=== PATIENT | male | born 1965 | race Caucasian/White ===

== ENCOUNTER 2016-07-17 08:16 | Emergency (ER) | payer MEDICARE ==
[2016-07-17] MEDS ORDERED: Pepcid 20 MG VIAL IV ONE ×2 (08:37→08:52)
[2016-07-17] MEDS ORDERED: Sodium Chloride 0.9% 1000 ML 1,000 ML IV SCH (08:45)
--- NOTE | 2016-07-17 08:49 | ERPHSYRPT ---
- History of Present Illness Time Seen by Provider: 07/17/16 08:27 Historian: patient Patient Subjective Stated Complaint: black stools and lower abd pain Triage Nursing Assessment: lower abd pain and frequent black stools for one week. no fever. no diet change. normal urination. states lost approx 30 lbs over past 3 months. 4-5 stools daily--most are black. nonradiating lower abd pain--intermittent in nature. Physician History: CC: lower abd pain Hx: 50 y/o patient of Dr Paredes. He has hx of CAD. He has lower abd pain , sharp, cramping. Some blood in stool and black stools. He had prior GB sonogram, no other abdominal problems. No fever or chills. Timing/Duration: day(s) (few) Severity of Pain-Max: moderate Severity of Pain-Current: moderate Allergies/Adverse Reactions: Penicillins Allergy (Severe, Verified 07/17/16 08:28) tongue swelling Home Medications: Albuterol Sulfate [Ventolin Hfa] 18 gm IH DAILY 07/17/16 [History] Albuterol/Ipratropium 3ml Neb* [DUONEB 0.5-3 MG/3 ml Neb] 3 ml NEB QID [History] Amlodipine Besylate [Norvasc] 2.5 mg PO DAILY 07/17/16 [History] Aspirin 325 mg PO DAILY 07/17/16 [History] Atorvastatin Calcium [Lipitor] 80 mg PO DAILY 07/17/16 [History] Carvedilol [Coreg] 25 mg PO DAILY 07/17/16 [History] Fluticasone/Vilanterol [Breo Ellipta 100-25 Mcg INH] 1 each IH DAILY 07/17/16 [ History] Hydrocodone Bit/Acetaminophen [Hydrocodon-Acetaminophn 10-325] 1 each PO [History] Lisinopril 20 mg [Zestril 20 MG] 20 mg PO DAILY 07/17/16 [History] Metformin HCl [Fortamet] 500 mg PO BID 07/17/16 [History] [place]-3 Fatty Acids/Fish Oil [[place]-3 1,000 mg Softgel] 1 each PO DAILY [History] Ticagrelor [Brilinta] 90 mg PO DAILY 07/17/16 [History] Zolpidem Tartrate [Ambien] 10 mg PO HS 07/17/16 [History] Hx Tetanus, Diphtheria Vaccination/Date Given: Yes Hx Influenza Vaccination/Date Given: Yes Hx Pneumococcal Vaccination/Date Given: No Immunizations Up to Date: Yes - Review of Systems Constitutional: Fatigue, Malaise, Weakness, No Fever, No Chills Eyes: No Symptoms Ears, Nose, & Throat: No Symptoms Respiratory: No Cough, No Dyspnea Cardiac: No Chest Pain Abdominal/Gastrointestinal: Abdominal Pain, Nausea, Vomiting, Diarrhea, Hematochezia, Melena Genitourinary Symptoms: No Dysuria Skin: No Rash Neurological: No Headache All Other Systems: Reviewed and Negative - Past Medical History Pertinent Past Medical History: Yes Neurological History: No Pertinent History ENT History: No Pertinent History Cardiac History: High Cholesterol, Hypertension, Myocardial Infarction (IA) Respiratory History: Asthma, Bronchitis, COPD, Emphysema, Pneumonia Endocrine Medical History: Diabetes Type II Musculoskeletal History: No Pertinent History GI Medical History: GERD History: No Pertinent History Psycho-Social History: Anxiety Male Reproductive Disorders: No Pertinent History Other Medical History: sleep apnea-cpap at night - Past Surgical History Past Surgical History: Yes Neuro Surgical History: No Pertinent History Cardiac: Cardiac Catheterization, Cardiac Stent Respiratory: No Pertinent History Gastrointestinal: No Pertinent History Genitourinary: No Pertinent History Musculoskeletal: No Pertinent History Male Surgical History: No Pertinent History - Social History Smoking Status: Never smoker Exposure to second hand smoke: No Drug Use: none Patient Lives Alone: No - Nursing Vital Signs Nursing Vital Signs: Initial Vital Signs Temperature 98.3 F Temperature Source Oral Pulse Rate 77 Respiratory Rate 18 Blood Pressure 118/74 Pain Intensity 0 - Physical Exam General Appearance: alert Eye Exam: PERRL/EOMI Ears, Nose, Throat Exam: normal ENT inspection, moist mucous membranes Neck Exam: normal inspection, non-tender, supple Respiratory Exam: normal breath sounds, lungs clear Cardiovascular Exam: regular rate/rhythm, No murmur Gastrointestinal/Abdomen Exam: soft, tenderness (lower abd worse on left), No mass, No guarding Male Genitalia Exam: normal genitalia, No testicular tenderness Rectal Exam: normal rectal tone, No blood, No tenderness Back Exam: normal inspection Extremity Exam: normal inspection, normal range of motion Neurologic Exam: alert, oriented x 3, cooperative, sensation nml, No motor deficits Skin Exam: warm, dry, No rash SpO2 Interpretation: normal SpO2: 97 Oxygen Delivery: Room Air - Course Nursing assessment & vital signs reviewed: Yes - CT Exams abd/pelvis CT Interpretation: Tele-radiologist Report (hepatic flexure colitis) Ordered Tests: Active Orders 24 hr Category Date Time Status [employer] STAT Care 07/17/16 08:37 Active IV Insertion STAT Care 07/17/16 08:37 Active NPO (ED) STAT Care 07/17/16 08:37 Active ABDOMEN AND PELVIS W CONTRAST [CT] Stat Exams 07/17/16 08:46 Completed CBC W DIFF Stat Lab 07/17/16 08:35 Completed CMP Stat Lab 07/17/16 08:35 Completed Lactic Acid Urgent Lab 07/17/16 09:05 Completed Occult Blood,Stool Other Stat Lab 07/17/16 08:38 Completed PROTIME WITH INR Stat Lab 07/17/16 08:35 Completed PTT Stat Lab 07/17/16 08:35 Completed UA Stat Lab 07/17/16 09:00 Completed Medication Summary Generic Name Dose Route Start Last Admin Trade Name Freq PRN Reason Stop Dose Admin Sodium Chloride 1,000 mls @ 100 mls/hr 07/17/16 08:45 07/17/16 08:53 Sodium Chloride 0.9% 1000 Ml IV 08/16/16 08:44 100 mls/hr .Q10H KENYON Administration Discontinued Medications Generic Name Dose Route Start Last Admin Trade Name Freq PRN Reason Stop Dose Admin Famotidine 20 mg 07/17/16 08:37 07/17/16 08:53 Pepcid 20 Mg Vial IV 07/17/16 08:38 20 mg STAT ONE Administration Famotidine Confirm 07/17/16 08:52 Pepcid 20 Mg Vial Administered 07/17/16 08:53 Dose 20 mg IV .STK-MED ONE Sodium Chloride Confirm 07/17/16 08:52 Sodium Chloride 0.9% 1000 Ml Administered 07/17/16 08:53 Dose 1,000 mls @ ud .ROUTE .STK-MED ONE Lab/Rad Data: Laboratory Result Diagrams 07/17/16 08:35 07/17/16 08:35 Laboratory Results 07/17/16 07/17/16 07/17/16 Range/Units 09:05 09:00 08:38 WBC (4.0-10.5) K/mm3 RBC (4.1-5.6) M/mm3 Hgb (12.5-18.0) gm/dl Hct (42-50) % MCV (78-100) fl MCH (26-32) pg MCHC (32-36) g/dl RDW (11.5-14.0) % Plt Count (150-450) K/mm3 MPV (6-9.5) fl Gran % (36.0-66.0) % Lymphocytes % (24.0-44.0) % Monocytes % (0.0-12.0) % Eosinophils % (0.00-5.0) % Basophils % (0.0-0.4) % Basophils # (0-0.4) INR (0.8-3.0) PTT (24.1-36.1) SECONDS Sodium (136-145) mEq/L Potassium (3.5-5.1) mEq/L Chloride (98-107) mEq/L Carbon Dioxide (21-32) mEq/L Anion Gap (5-15) MEQ/L BUN (9-20) mg/dL Creatinine (0.55-1.30) mg/dl Estimated GFR ML/MIN Glucose (70-110) MG/DL Lactic Acid 1.8 (0.4-2.0) Calcium (8.5-10.1) mg/dL Total Bilirubin (0.2-1.0) mg/dL AST (15-37) U/L ALT (12-78) U/L Alkaline Phosphatase (46-116) U/L Serum Total Protein (6.4-8.2) gm/dL Albumin (3.4-5.0) g/dL Ur Collection Type VOID Urine Color YELLOW (YELLOW) Urine Appearance CLEAR (CLEAR) Urine pH 5.0 (5-6) Ur Specific [place] >=1.030 (1.005-1.025) Urine Protein NEGATIVE (Negative) Urine Glucose (UA) >=1000 (NEGATIVE) mg/dL Urine Ketones NEGATIVE (NEGATIVE) Urine Nitrite NEGATIVE (NEGATIVE) Urine Bilirubin NEGATIVE (NEGATIVE) Urine Urobilinogen 0.2 (0-1) mg/dL Urine WBC (Auto) NEGATIVE (NEGATIVE) Urine RBC (Auto) NEGATIVE (0-5) [place]/ul Stool Occult Blood POSITIVE (Negative) Specimen Received 07/17/16 0900 ABO Group Rh Factor Antibody Screen (NEGATIVE) 07/17/16 07/17/16 07/17/16 Range/Units 08:35 08:35 08:35 WBC (4.0-10.5) K/mm3 RBC (4.1-5.6) M/mm3 Hgb (12.5-18.0) gm/dl Hct (42-50) % MCV (78-100) fl MCH (26-32) pg MCHC (32-36) g/dl RDW (11.5-14.0) % Plt Count (150-450) K/mm3 MPV (6-9.5) fl Gran % (36.0-66.0) % Lymphocytes % (24.0-44.0) % Monocytes % (0.0-12.0) % Eosinophils % (0.00-5.0) % Basophils % (0.0-0.4) % Basophils # (0-0.4) INR 1.06 (0.8-3.0) PTT 33.5 (24.1-36.1) SECONDS Sodium 140 (136-145) mEq/L Potassium 3.7 (3.5-5.1) mEq/L Chloride 106 (98-107) mEq/L Carbon Dioxide 23.7 (21-32) mEq/L Anion Gap 14.1 (5-15) MEQ/L BUN 25 H (9-20) mg/dL Creatinine 1.30 (0.55-1.30) mg/dl Estimated GFR > 60 ML/MIN Glucose 180 H (70-110) MG/DL Lactic Acid (0.4-2.0) Calcium 8.5 (8.5-10.1) mg/dL Total Bilirubin 0.2 (0.2-1.0) mg/dL AST 16 (15-37) U/L ALT 18 (12-78) U/L Alkaline Phosphatase 80 (46-116) U/L Serum Total Protein 6.9 (6.4-8.2) gm/dL Albumin 3.6 (3.4-5.0) g/dL Ur Collection Type Urine Color (YELLOW) Urine Appearance (CLEAR) Urine pH (5-6) Ur Specific [place] (1.005-1.025) Urine Protein (Negative) Urine Glucose (UA) (NEGATIVE) mg/dL Urine Ketones (NEGATIVE) Urine Nitrite (NEGATIVE) Urine Bilirubin (NEGATIVE) Urine Urobilinogen (0-1) mg/dL Urine WBC (Auto) (NEGATIVE) Urine RBC (Auto) (0-5) Bra[place]/ul Stool Occult Blood (Negative) Specimen Received ABO Group B Rh Factor POSITIVE Antibody Screen NEGATIVE (NEGATIVE) 07/17/16 Range/Units 08:35 WBC 10.3 (4.0-10.5) K/mm3 RBC 4.56 (4.1-5.6) M/mm3 Hgb 13.3 (12.5-18.0) gm/dl Hct 40.6 L (42-50) % MCV 89.0 (78-100) fl MCH 29.2 (26-32) pg MCHC 32.8 (32-36) g/dl RDW 12.8 (11.5-14.0) % Plt Count 294 (150-450) K/mm3 MPV 9.0 (6-9.5) fl Gran % 80.6 H (36.0-66.0) % Lymphocytes % 12.0 L (24.0-44.0) % Monocytes % 6.5 (0.0-12.0) % Eosinophils % 0.6 (0.00-5.0) % Basophils % 0.3 (0.0-0.4) % Basophils # 0.03 (0-0.4) INR (0.8-3.0) PTT (24.1-36.1) SECONDS Sodium (136-145) mEq/L Potassium (3.5-5.1) mEq/L Chloride (98-107) mEq/L Carbon Dioxide (21-32) mEq/L Anion Gap (5-15) MEQ/L BUN (9-20) mg/dL Creatinine (0.55-1.30) mg/dl Estimated GFR ML/MIN Glucose (70-110) MG/DL Lactic Acid (0.4-2.0) Calcium (8.5-10.1) mg/dL Total Bilirubin (0.2-1.0) mg/dL AST (15-37) U/L ALT (12-78) U/L Alkaline Phosphatase (46-116) U/L Serum Total Protein (6.4-8.2) gm/dL Albumin (3.4-5.0) g/dL Ur Collection Type Urine Color (YELLOW) Urine Appearance (CLEAR) Urine pH (5-6) Ur Specific [place] (1.005-1.025) Urine Protein (Negative) Urine Glucose (UA) (NEGATIVE) mg/dL Urine Ketones (NEGATIVE) Urine Nitrite (NEGATIVE) Urine Bilirubin (NEGATIVE) Urine Urobilinogen (0-1) mg/dL Urine WBC (Auto) (NEGATIVE) Urine RBC (Auto) (0-5) Bra[place]/ul Stool Occult Blood (Negative) Specimen Received ABO Group Rh Factor Antibody Screen (NEGATIVE) - Progress Progress Note: 07/17/16 10:32 Pt stable. Explained abnl test results. He will be treated with PPI and abtx. He prefers to go home. Called Dr Faith who will see in office tomorrow at 11: 15. Will release with instr. Pt declined pain meds here and abd is soft with normal vital signs. Counseled pt/family regarding: lab results, diagnosis, need for follow-up, rad results - Departure Time of Disposition: 10:34 Departure Disposition: Home Clinical Impression: Colitis, Melena Condition: Stable Critical Care Time: No Referrals: LISET DAVIS [Primary Care Provider] - Instructions: Abdominal Pain-Adult Additional Instructions: See Dr Faith tomorrow at 11:15AM for follow up check. [place] diet. Hold brilinta today and in AM. Rx protonix- next dose in AM Rx flagyl- no alcohol Rx levaquin- next dose in AM Return for problems or concerns. Hold metformin for 48 hours and watch sugars. Prescriptions: Levofloxacin [Levaquin] 1 tab PO DAILY #7 tablet Metronidazole 500 mg [Flagyl 500 MG] 500 mg PO TID #30 tablet PANTOPRAZOLE 40 mg Tablet [Protonix 40MG Tablet] 40 mg PO QAM #30 tab
[2016-07-17] MEDS ORDERED: Sodium Chloride 0.9% 1000 ML 1,000 ML ONE (08:52)
[2016-07-17 08:59] LABS: BASOPHIL % 0.3 % (0.0-0.4); Eosinophil % 0.6 % (0.00-5.0); Granulocytes % 80.6 % (36.0-66.0); Mean Corpuscular Hemoglobin 29.2 pg (26-32); Monocytes % 6.5 % (0.0-12.0); Platelet Count 294 K/mm3 (150-450); Red Blood Count 4.56 M/mm3 (4.1-5.6); Red Cell Distribution Width 12.8 % (11.5-14.0); White Blood Count 10.3 K/mm3 (4.0-10.5)
[2016-07-17 09:15] LABS: Collection Type VOID
[2016-07-17 09:17] LABS: COMPLETE URINE MICROSCOPIC? NO
[2016-07-17 09:19] LABS: ALBUMIN 3.6 g/dL (3.4-5.0); ALKALINE PHOSPHATASE 80 U/L (46-116); ANION GAP 14.1 MEQ/L (5-15); BILIRUBIN,TOTAL 0.2 mg/dL (0.2-1.0); BLOOD UREA NITROGEN 25 mg/dL (9-20); CHLORIDE 106 mEq/L (98-107); Carbon Dioxide 23.7 mEq/L (21-32); Glucose 180 MG/DL (70-110); Potassium 3.7 mEq/L (3.5-5.1); SGOT/AST 16 U/L (15-37); SGPT/ALT 18 U/L (12-78); SODIUM 140 mEq/L (136-145); Total Protein 6.9 gm/dL (6.4-8.2)
[2016-07-17 09:22] LABS: INR 1.06 (0.8-3.0); PROTIME 11.8 SECONDS (8.83-12.87)
[2016-07-17 09:25] LABS: PTT 33.5 SECONDS (24.1-36.1)
--- NOTE | 2016-07-17 09:57 | XRAY ---
Indication: Lower abdominal pain, diarrhea, and black stools. Multiple contiguous axial images obtained through the abdomen and pelvis using 80 cc Isovue 370 contrast only as ordered. Comparison: None Lung bases hyperinflated with minimal inferior lingular fibrosis/scarring and left base calcified granuloma. No infiltrate, consolidation, or effusion. Heart is not enlarged. Tiny distal paraesophageal calcified nodes. Noncontrasted stomach and bowel loops appear nonobstructed. Mild circumferential wall thickening involving the hepatic flexure of the colon, possible colitis. Normal appendix. No free fluid/air. Remaining liver, gallbladder, pancreas, spleen, adrenal glands, kidneys, ureters, and bladder appear unremarkable. Mild aortoiliac calcifications. No AAA or pathologic retroperitoneal lymphadenopathy. Osseous structures intact with mild lumbosacral degenerative disc disease. Impression: Hepatic flexure of the colon demonstrates mild circumferential wall thickening favoring colitis. No perforation or complications. CT DI 17.97
[2016-07-17] MEDS ORDERED: PROTONIX 40 MG IV IV ONE ×2 (10:30→10:34)
[2016-07-17] MEDS ORDERED: Levaquin 500 MG Tablet PO ONE (10:31)
[2016-07-17] MEDS ORDERED: LEVAQUIN 250 MG PO ONE (10:31)
[2016-07-17] MEDS ORDERED: Flagyl 500 MG PO ONE (10:31)
[2016-07-17] MEDS ORDERED: Flagyl 500 MG ONE (10:34)
[2016-07-17] MEDS ORDERED: Levaquin 500 MG Tablet ONE (10:34)
[2016-07-17] MEDS ORDERED: LEVAQUIN 250 MG ONE (10:35)
[2016-07-17 10:39] VITALS: O2SAT 97
[2016-07-17 10:43] VITALS: BP 116/73; PULSE 67
== END 2016-07-17 10:45 | disposition home or self-care (01) ==
LOC: ED 08:16
DX: K52.9 Noninfective gastroenteritis and colitis, unspecified (principal); K92.1 Melena; R10.9 Unspecified abdominal pain; R11.2 Nausea with vomiting, unspecified; R19.7 Diarrhea, unspecified; E78.00 Pure hypercholesterolemia, unspecified; I10 Essential (primary) hypertension; E11.9 Type 2 diabetes mellitus without complications; Z79.899 Other long term (current) drug therapy; Z79.82 Long term (current) use of aspirin
CPT/HCPCS: 36000; 36415; 74177; 80053; 81002; 82272; 83605; 85025; 85610; 85730; 86850; 86900; 86901; 93041; 96360; 96361; 96374; 96375; 99284

== ENCOUNTER 2016-07-20 12:14 | Inpatient (IN) | payer MEDICARE ==
[2016-07-20 13:18] LABS: BASOPHIL % 0.3 % (0.0-0.4); Eosinophil % 1.3 % (0.00-5.0); Granulocytes % 51.4 % (36.0-66.0); Lymphocytes % 33.6 % (24.0-44.0); Mean Cell Volume 88.7 fl (78-100); Mean Corpuscular Hemoglobin 29.3 pg (26-32); Mean Platelet Volume 9.2 fl (6-9.5); Monocytes % 13.4 % (0.0-12.0); Platelet Count 302 K/mm3 (150-450); Red Blood Count 4.61 M/mm3 (4.1-5.6); Red Cell Distribution Width 12.8 % (11.5-14.0)
[2016-07-20 13:29] LABS: INR 1.17 (0.8-3.0)
[2016-07-20] MEDS ORDERED: Sodium Chloride 0.9% 500 ML 500 ML IV SCH (13:30)
[2016-07-20] MEDS ORDERED: Zofran 4 MG/2 ML VIAL IV PRN (13:32)
[2016-07-20] MEDS ORDERED: TYLENOL 325 MG PO PRN (13:33)
[2016-07-20 13:43] LABS: ALBUMIN 3.7 g/dL (3.4-5.0); ALKALINE PHOSPHATASE 84 U/L (46-116); ANION GAP 13.7 MEQ/L (5-15); BILIRUBIN,TOTAL 0.3 mg/dL (0.2-1.0); BLOOD UREA NITROGEN 25 mg/dL (9-20); CHLORIDE 107 mEq/L (98-107); Carbon Dioxide 25.3 mEq/L (21-32); Glucose 96 MG/DL (70-110); Potassium 4.1 mEq/L (3.5-5.1); SGOT/AST 16 U/L (15-37); SGPT/ALT 32 U/L (12-78); SODIUM 142 mEq/L (136-145); Total Protein 7.2 gm/dL (6.4-8.2)
--- NOTE | 2016-07-20 14:31 | XRAY ---
Indication: Tar like stools. Abdominal pain. Comparison: None 2 views of the abdomen nonacute and nonobstructed with mild scattered colonic fecal debris. Solid organs and osseous structures unremarkable. Single PA chest demonstrates normal heart, lungs, and bony thorax. Impression: Nonacute nonobstructed abdomen with mild fecal stasis. Normal 1 view chest.
[2016-07-20] MEDS: PROTONIX 40 MG IV IV SCH (14:42)
[2016-07-20] MEDS: Dextrose 5% -0.45 NaCl 1000 ML 1,000 ML IV SCH (14:42)
[2016-07-20] MEDS: Levaquin 500MG/100ML D5W 100 ML IV SCH (14:44)
[2016-07-20] MEDS ORDERED: DUONEB 0.5-3 MG/3 ml Neb IH PRN (14:56)
[2016-07-20] MEDS ORDERED: MEDICATION INTERVENTION MC PRN (15:25)
--- NOTE | 2016-07-20 15:50 | CONS ---
CONSULT DATE: 07/20/16 HISTORY OF PRESENT ILLNESS: The patient is a 50 y/o gentleman with multiple medical problems. Had some vague mid to lower abdominal aches and in the upper, some bloating. Has been going on for a few days. He later developed some dark, bloody stools. He had a CT scan on 07/17/16 that showed some inflammation in the hepatic flexure that the radiologist was felt was consistent with some possible colitis, no free air collections. PAST MEDICAL HISTORY: Had chronic obstructive pulmonary disease. He has had heart disease. Has had coronary stents in [place] in the past. PAST SURGICAL HISTORY: Denied any prior abdominal surgery. Has had some diabetes. HOME MEDICATIONS: Aspirin, atorvastatin, Breo Ellipta, carvedilol, zolpidem, Plavix, omeprazole, Nitrostat, metronidazole, metformin, lisinopril, Levaquin, ipratropium, albuterol, hydrocodone, famotidine, fluconazole. ALLERGIES: PENICILLIN. FAMILY HISTORY: Heart disease. SOCIAL HISTORY: No smoking. REVIEW OF SYSTEMS: 10 systems reviewed per admission assessment. Again, some dark bloody stools. No bright bloody stools. No vomiting currently. He did have some bloating and some vague abdominal aches. Pain is a little better than it was a few days ago, but still has some persistent symptoms. No chest pain or palpitations otherwise. IMPRESSION: 1. SOME ABDOMINAL PAIN. SOME DARK BLOODY STOOLS. Could be related to some colitis given his blood thinner use vs gastritis, peptic ulcer disease, or other etiology. Given the CT findings, recommend IV antibiotics overnight. If he is improved some more tomorrow, likely could plan on proceeding possibly with upper and lower endoscopy on Saturday. General risks of bleeding; infection; risk of bowel injury or perforation possibly requiring open procedure; small risk of missed or nondiagnosis or incomplete exam possibly requiring barium enema or other studies or procedures; general risk of cardiopulmonary event given his comorbidities, but not limited to. Will wait and make sure he is improved tomorrow before considering bowel prep and endoscopy. If he failed to improve or he worsens, will consider repeating the CT scan tomorrow if needed, but if he continues to improve, likely would set up endoscopy for possibly Saturday. He understands and agrees to the plan. In the meantime, continue bowel rest, IV antibiotics, and medical management for now. Thank you for the consult.
[2016-07-20] MEDS: FLAGYL 500 MG IVPB 100 ML IV SCH ×2 (16:30→23:58)
[2016-07-20] MEDS: MORPHINE SULFATE 2 MG INJ IV PRN ×2 (18:33→22:10)
[2016-07-20] MEDS ORDERED: DUONEB 0.5-3 MG/3 ml Neb IH SCH (19:00)
[2016-07-20] MEDS: Norco 10/325 MG Tablet PO PRN (21:49)
[2016-07-20] MEDS: Ambien 10 MG PO SCH (21:54)
[2016-07-21] MEDS: Dextrose 5% -0.45 NaCl 1000 ML 1,000 ML IV SCH ×2 (03:38→19:51)
[2016-07-21] MEDS: FLAGYL 500 MG IVPB 100 ML IV SCH ×4 (05:31→23:06)
[2016-07-21 06:26] LABS: Mean Cell Volume 89.8 fl (78-100); Mean Platelet Volume 9.4 fl (6-9.5); Platelet Count 231 K/mm3 (150-450); Red Blood Count 4.01 M/mm3 (4.1-5.6); Red Cell Distribution Width 12.5 % (11.5-14.0)
[2016-07-21 06:27] LABS: Mean Corpuscular Hemoglobin 29.1 pg (26-32)
[2016-07-21] MEDS: NORVASC 5 MG PO SCH (08:28)
[2016-07-21] MEDS: PROTONIX 40 MG IV IV SCH (08:29)
[2016-07-21] MEDS: PLAVIX 75 MG Tablet PO SCH (08:29)
[2016-07-21] MEDS: ZOCOR 20MG PO SCH (08:29)
[2016-07-21] MEDS: COREG 12.5 MG PO SCH (08:30)
[2016-07-21] MEDS: MORPHINE SULFATE 2 MG INJ IV PRN (08:30)
[2016-07-21] MEDS: FISH OIL 1,000 MG CAPSULE PO SCH (08:30)
[2016-07-21] MEDS: Levaquin 500MG/100ML D5W 100 ML IV SCH (08:33)
[2016-07-21] MEDS: ECOTRIN 81 MG PO SCH (08:39)
[2016-07-21] MEDS ORDERED: OMEGA PO SCH (10:00)
[2016-07-21] MEDS ORDERED: Ventolin Hfa MDI IH SCH (10:00)
[2016-07-21] MEDS ORDERED: FATTY ACIDS PO SCH (10:00)
[2016-07-21] MEDS ORDERED: NON-FORMULARY ITEM (Atorvastatin Calcium [Lipitor] 80 MG) PO SCH (10:00)
[2016-07-21] MEDS ORDERED: PROVENTIL COMMON CANISTER IH SCH (10:00)
[2016-07-21] MEDS ORDERED: NON-FORMULARY ITEM (Amlodipine Besylate [Norvasc] 2.5 MG) PO SCH (10:00)
[2016-07-21] MEDS ORDERED: NON-FORMULARY ITEM (Fluticasone/Vilanterol [Breo Ellipta 100-25 Mcg Inh] 1 EACH) IH SCH (10:00)
[2016-07-21] MEDS ORDERED: FISH OIL PO SCH (10:00)
--- NOTE | 2016-07-21 10:05 | PCM.NOTE ---
Date and Time: 07/21/16 1004 Subjective Assessment: patient reports his pain has improved, still uncomfortable in the lower abdomen. had a black stool this morning, no fever. Objective Exam General Appearance: no apparent distress, alert Respiratory Exam: normal breath sounds, lungs clear, No respiratory distress Cardiovascular Exam: regular rate/rhythm, normal heart sounds Gastrointestinal/Abdomen Exam: soft, tenderness (mild in lower abdomen) Extremity Exam: normal inspection, normal range of motion OBJECTIVE DATA Vital Signs: Vital Signs - 24 hr Temp Pulse Resp BP BP Pulse Ox 07/21/16 07:52 98.1 F 77 20 137/68 95 07/21/16 04:00 98.2 F 75 16 141/72 98 07/21/16 00:00 97.7 F 73 18 132/73 95 07/20/16 20:25 74 20 97 07/20/16 20:00 98.5 F 75 20 141/81 95 07/20/16 16:00 98.2 F 73 20 132/77 96 07/20/16 15:02 69 18 97 07/20/16 12:35 98 F 73 18 112/70 97 07/20/16 12:30 98.0 F 73 18 112/70 97 Oxygen-Last 24 hours O2 Percentage 2 Liters = 28% O2 Percentage 2 Liters = 28% Pain Assessment - Last Documented Pain Intensity 4 Pain Scale Used 0-10 Pain Scale Intake and Output: Intake & Output 07/18/16 07/19/16 07/20/16 07/21/16 11:59 11:59 11:59 11:59 Intake Total 3048 Balance 3048 Weight 83.552 kg Lab Results: Accuchecks Date 07/21/16 Date 07/20/16 Time 07:30 Time 22:00 Accucheck Value: 92 Accucheck Value: 122 Lab Results-Last 24 Hours 07/20/16 07/20/16 07/20/16 Range/Units 12:55 12:55 13:00 WBC 6.0 (4.0-10.5) K/mm3 RBC 4.61 (4.1-5.6) M/mm3 Hgb 13.5 (12.5-18.0) gm/dl Hct 40.9 L (42-50) % MCV 88.7 (78-100) fl MCH 29.3 (26-32) pg MCHC 33.0 (32-36) g/dl RDW 12.8 (11.5-14.0) % Plt Count 302 (150-450) K/mm3 MPV 9.2 (6-9.5) fl Gran % 51.4 (36.0-66.0) % Lymphocytes % 33.6 (24.0-44.0) % Monocytes % 13.4 H (0.0-12.0) % Eosinophils % 1.3 (0.00-5.0) % Basophils % 0.3 (0.0-0.4) % Basophils # 0.02 (0-0.4) INR 1.17 (0.8-3.0) Sodium (136-145) mEq/L Potassium (3.5-5.1) mEq/L Chloride (98-107) mEq/L Carbon Dioxide (21-32) mEq/L Anion Gap (5-15) MEQ/L BUN (9-20) mg/dL Creatinine (0.55-1.30) mg/dl Estimated GFR ML/MIN Glucose (70-110) MG/DL Hemoglobin A1c (4.5-6.2) Lactic Acid 0.9 (0.4-2.0) Calcium (8.5-10.1) mg/dL Total Bilirubin (0.2-1.0) mg/dL AST (15-37) U/L ALT (12-78) U/L Alkaline Phosphatase (46-116) U/L Serum Total Protein (6.4-8.2) gm/dL Albumin (3.4-5.0) g/dL 07/20/16 07/21/16 07/21/16 Range/Units 13:05 05:40 05:40 WBC 5.0 (4.0-10.5) K/mm3 RBC 4.01 L (4.1-5.6) M/mm3 Hgb 11.7 L (12.5-18.0) gm/dl Hct 36.0 L (42-50) % MCV 89.8 (78-100) fl MCH 29.1 (26-32) pg MCHC 32.5 (32-36) g/dl RDW 12.5 (11.5-14.0) % Plt Count 231 (150-450) K/mm3 MPV 9.4 (6-9.5) fl Gran % (36.0-66.0) % Lymphocytes % (24.0-44.0) % Monocytes % (0.0-12.0) % Eosinophils % (0.00-5.0) % Basophils % (0.0-0.4) % Basophils # (0-0.4) INR (0.8-3.0) Sodium 142 (136-145) mEq/L Potassium 4.1 (3.5-5.1) mEq/L Chloride 107 (98-107) mEq/L Carbon Dioxide 25.3 (21-32) mEq/L Anion Gap 13.7 (5-15) MEQ/L BUN 25 H (9-20) mg/dL Creatinine 1.12 (0.55-1.30) mg/dl Estimated GFR > 60 ML/MIN Glucose 96 (70-110) MG/DL Hemoglobin A1c 6.4 H (4.5-6.2) Lactic Acid (0.4-2.0) Calcium 8.9 (8.5-10.1) mg/dL Total Bilirubin 0.3 (0.2-1.0) mg/dL AST 16 (15-37) U/L ALT 32 (12-78) U/L Alkaline Phosphatase 84 (46-116) U/L Serum Total Protein 7.2 (6.4-8.2) gm/dL Albumin 3.7 (3.4-5.0) g/dL Radiology Exams: Radiology Procedures Category Date Time Status OBSTR/ACUTE ABDOMEN SERIES Routine Exams 07/20/16 13:00 Completed Multi-Disciplinary Progress Notes: Multi-Disciplinary Progress Notes 07/20/16 23:21 Respiratory Note by Devendra Boucher PT STATED HE DID NOT WANT TO TRY OUT OUR CPAP MASK AND UNIT TONIGHT SO I DID GO AHEAD AND PLACE HIM ON A 2LPM NC OF O2 FOR THE NIGHT HE DOES USE 2LPM W/ CPAP. Initialized on 07/20/16 23:21 - END OF NOTE 07/20/16 20:28 Respiratory Note by Devendra Boucher NO TX NEEDED AT THIS TIME. PT DOESN'T THINK HE WANTS TO WEAR OUR CPAP UNIT/ MASK. I LET HIM KNOW I'D LEAVE IT AT BEDSIDE THIS AVILA IN CASE HE CHANGED HIS MIND AND THAT HE WAS WELCOME TO HAVE HIS FAMILY BRING HIS PERSONAL UNIT IN TO USE WHILE HE IS HERE. Initialized on 07/20/16 20:28 - END OF NOTE Assessment/Plan (1) Colitis Current Visit: No Status: Acute Assessment & Plan: continue levaquin and flagyl, will be seen by surgery to contemplate timing of EGD/colonoscopy (2) Melena Current Visit: No Status: Acute Code(s): K92.1 - MELENA
[2016-07-21] MEDS ORDERED: Reglan 10 MG/2 ML IV PRN (15:12)
[2016-07-21] MEDS ORDERED: Golytely Solution 4000 ML PO ONE (16:00)
[2016-07-21] MEDS: Norco 10/325 MG Tablet PO PRN (17:29)
--- NOTE | 2016-07-21 20:48 | XRAY ---
Indication: Abdominal and pelvic pain. Multiple contiguous axial images obtained through the abdomen and pelvis using 80 cc of Isovue-370 contrast only. Comparison: July 17, 2016 Minimal atelectasis/scarring in the inferior lingula and right lung base. Heart is not enlarged. Stable distal paraesophageal calcified nodes. Noncontrasted stomach and bowel loops again appear nonobstructed. Previous hepatic flexure colonic bowel wall thickening has resolved. There is now mild scattered colonic fecal debris and minimal sigmoid diverticulosis. Normal appendix. No free fluid/air. Remaining liver, gallbladder, pancreas, spleen, adrenal glands, kidneys, ureters, and bladder appear unremarkable. Stable aortoiliac calcifications again without AAA. Impression: 1. Previous hepatic flexure colonic wall thickening has resolved. There is now mild fecal stasis and sigmoid diverticulosis. 2. No acute intra-abdominal/pelvic abnormalities. CTDI 16.64
[2016-07-21] MEDS: Ambien 10 MG PO SCH (21:50)
[2016-07-22] MEDS: Dextrose 5% -0.45 NaCl 1000 ML 1,000 ML IV SCH (05:48)
[2016-07-22] MEDS: FLAGYL 500 MG IVPB 100 ML IV SCH ×2 (05:48→11:08)
[2016-07-22 05:52] LABS: BASOPHIL % 0.2 % (0.0-0.4); Eosinophil % 1.2 % (0.00-5.0); Granulocytes % 60.4 % (36.0-66.0); Lymphocytes % 27.3 % (24.0-44.0); Mean Cell Volume 88.9 fl (78-100); Mean Corpuscular Hemoglobin 29.1 pg (26-32); Monocytes % 10.9 % (0.0-12.0); Platelet Count 246 K/mm3 (150-450); Red Blood Count 4.22 M/mm3 (4.1-5.6); Red Cell Distribution Width 12.5 % (11.5-14.0); White Blood Count 6.1 K/mm3 (4.0-10.5)
[2016-07-22 06:08] LABS: ALBUMIN 3.2 g/dL (3.4-5.0); ALKALINE PHOSPHATASE 57 U/L (46-116); BILIRUBIN,TOTAL 0.3 mg/dL (0.2-1.0); BLOOD UREA NITROGEN 6 mg/dL (9-20); CHLORIDE 108 mEq/L (98-107); Carbon Dioxide 29.5 mEq/L (21-32); Glucose 113 MG/DL (70-110); MAGNESIUM 1.9 mg/dL (1.8-2.4); Potassium 3.8 mEq/L (3.5-5.1); SGOT/AST 26 U/L (15-37); SGPT/ALT 30 U/L (12-78); SODIUM 145 mEq/L (136-145)
--- NOTE | 2016-07-22 07:21 | PCM.NOTE ---
Date and Time: 07/22/16718 Subjective Assessment: patient stable, prepped for scope today. feels hungry, no abd pain. hemocult was negative yesterday, hgc >12 today Objective Exam General Appearance: no apparent distress, alert Skin Exam: normal color, warm, dry Respiratory Exam: normal breath sounds, lungs clear, No respiratory distress Cardiovascular Exam: regular rate/rhythm, normal heart sounds Gastrointestinal/Abdomen Exam: soft, No tenderness, No mass Extremity Exam: normal inspection, normal range of motion OBJECTIVE DATA Vital Signs: Vital Signs - 24 hr Temp Pulse Resp BP Pulse Ox 07/22/16 04:00 98.5 F 74 20 142/87 98 07/21/16 23:20 98.0 F 83 20 140/90 97 07/21/16 19:53 98.2 F 74 18 164/88 96 07/21/16 19:41 95 07/21/16 19:40 67 16 95 07/21/16 16:24 97.8 F 88 20 130/63 97 07/21/16 15:00 71 20 96 07/21/16 12:00 98.6 F 69 20 148/70 96 07/21/16 07:52 98.1 F 77 20 137/68 95 Oxygen-Last 24 hours O2 Percentage 2 Liters = 28% Pain Assessment - Last Documented Pain Intensity 0 Pain Scale Used 0-10 Pain Scale Intake and Output: Intake & Output 07/19/16 07/20/16 07/21/16 07/22/16 11:59 11:59 11:59 11:59 Intake Total 3048 6473 Balance 3048 6473 Weight 83.552 kg Lab Results: Accuchecks Date 07/21/16 Time 07:30 Accucheck Value: 92 Lab Results-Last 24 Hours 07/21/16 07/21/16 07/22/16 Range/Units 05:40 08:00 04:30 WBC 6.1 (4.0-10.5) K/mm3 RBC 4.22 (4.1-5.6) M/mm3 Hgb 12.3 L (12.5-18.0) gm/dl Hct 37.5 L (42-50) % MCV 88.9 (78-100) fl MCH 29.1 (26-32) pg MCHC 32.8 (32-36) g/dl RDW 12.5 (11.5-14.0) % Plt Count 246 (150-450) K/mm3 MPV 9.0 (6-9.5) fl Gran % 60.4 (36.0-66.0) % Lymphocytes % 27.3 (24.0-44.0) % Monocytes % 10.9 (0.0-12.0) % Eosinophils % 1.2 (0.00-5.0) % Basophils % 0.2 (0.0-0.4) % Basophils # 0.01 (0-0.4) Sodium (136-145) mEq/L Potassium (3.5-5.1) mEq/L Chloride (98-107) mEq/L Carbon Dioxide (21-32) mEq/L Anion Gap (5-15) MEQ/L BUN (9-20) mg/dL Creatinine (0.55-1.30) mg/dl Estimated GFR ML/MIN Glucose (70-110) MG/DL Hemoglobin A1c 6.4 H (4.5-6.2) Calcium (8.5-10.1) mg/dL Magnesium (1.8-2.4) mg/dL Total Bilirubin (0.2-1.0) mg/dL AST (15-37) U/L ALT (12-78) U/L Alkaline Phosphatase (46-116) U/L Serum Total Protein (6.4-8.2) gm/dL Albumin (3.4-5.0) g/dL Stool Occult Blood NEGATIVE (Negative) 07/22/16 Range/Units 04:30 WBC (4.0-10.5) K/mm3 RBC (4.1-5.6) M/mm3 Hgb (12.5-18.0) gm/dl Hct (42-50) % MCV (78-100) fl MCH (26-32) pg MCHC (32-36) g/dl RDW (11.5-14.0) % Plt Count (150-450) K/mm3 MPV (6-9.5) fl Gran % (36.0-66.0) % Lymphocytes % (24.0-44.0) % Monocytes % (0.0-12.0) % Eosinophils % (0.00-5.0) % Basophils % (0.0-0.4) % Basophils # (0-0.4) Sodium 145 (136-145) mEq/L Potassium 3.8 (3.5-5.1) mEq/L Chloride 108 H (98-107) mEq/L Carbon Dioxide 29.5 (21-32) mEq/L Anion Gap 11.0 (5-15) MEQ/L BUN 6 L (9-20) mg/dL Creatinine 1.07 (0.55-1.30) mg/dl Estimated GFR > 60 ML/MIN Glucose 113 H (70-110) MG/DL Hemoglobin A1c (4.5-6.2) Calcium 8.4 L (8.5-10.1) mg/dL Magnesium 1.9 (1.8-2.4) mg/dL Total Bilirubin 0.3 (0.2-1.0) mg/dL AST 26 (15-37) U/L ALT 30 (12-78) U/L Alkaline Phosphatase 57 (46-116) U/L Serum Total Protein 6.0 L (6.4-8.2) gm/dL Albumin 3.2 L (3.4-5.0) g/dL Stool Occult Blood (Negative) Radiology Exams: Radiology Procedures Category Date Time Status ABDOMEN AND PELVIS W CONTRAST [CT] Urgent Exams 07/21/16 11:08 Completed OBSTR/ACUTE ABDOMEN SERIES Routine Exams 07/20/16 13:00 Completed Multi-Disciplinary Progress Notes: Multi-Disciplinary Progress Notes 07/21/16 15:09 Respiratory Note by Nely Figueroa pt takes breo prn at home . does not want to use advair. and does not to bring in home supply Initialized on 07/21/16 15:09 - END OF NOTE 07/21/16 11:39 Case Management Note by [place] DISCHARGE PLAN REVIEWED. NORMALLY INDEPENDENT WITH ALL ADL'S, LIVES WITH GIRLFRIEND. PT HAS AN OXYGEN CONCENTRATOR THAT HE PURCHASED ONLINE AND STATES HE USES CPAP AT [facility] WITH 2L. DENIES ANY OTHER SERVICES OR DME'S. WILL CONTINUE TO MONITOR FOR ALL D/C PLANS Initialized on 07/21/16 11:39 - END OF NOTE Assessment/Plan (1) Colitis Current Visit: No Status: Acute Assessment & Plan: improved clinically, likely home later today or tomorrow on po antibiotics (2) Melena Current Visit: No Status: Acute Code(s): K92.1 - MELENA
[2016-07-22] MEDS ORDERED: Ketamine HCl 50 MG/ML IV ONE (08:00)
[2016-07-22] MEDS ORDERED: DIPRIVAN 200 MG/20 ML IV ONE (08:00)
[2016-07-22] MEDS ORDERED: Lactated Ringers 1,000 ML IV SCH (08:30)
[2016-07-22] MEDS ORDERED: NO ANTICOAGULANTS OR BLOOD THINNERS/ASPIRIN MC SCH (10:00)
[2016-07-22] MEDS: NORVASC 5 MG PO SCH (11:06)
[2016-07-22] MEDS: PROTONIX 40 MG IV IV SCH (11:06)
[2016-07-22] MEDS: ZOCOR 20MG PO SCH (11:06)
[2016-07-22] MEDS: FISH OIL 1,000 MG CAPSULE PO SCH (11:07)
[2016-07-22] MEDS: COREG 12.5 MG PO SCH (11:07)
[2016-07-22] MEDS: ECOTRIN 81 MG PO SCH (11:07)
[2016-07-22] MEDS: PLAVIX 75 MG Tablet PO SCH (11:08)
[2016-07-22] MEDS: Levaquin 500MG/100ML D5W 100 ML IV SCH (11:08)
[2016-07-22] MEDS ORDERED: Lactated Ringers 1,000 ML IV ONE (11:19)
[2016-07-22 12:50] VITALS: BP 120/61; PULSE 80; O2SAT 95
--- NOTE | 2016-07-23 08:26 | OP ---
SURGERY DATE: 07/22/16 SURGERY TIME: 0850 PREOPERATIVE DIAGNOSIS: 1. HISTORY OF ABDOMINAL PAIN. 2. HISTORY OF RECENT CT SCAN SHOWING THICKENED RIGHT COLON AND PROXIMAL TRANSVERSE COLON. 3. HISTORY OF QUESTION OF MELENA. POSTOPERATIVE DIAGNOSIS: 1. MILD GASTRITIS. 2. SHORT SEGMENT DISTAL GASTROESOPHAGITIS VS EARLY MCNALLY'S. 3. POOR BOWEL PREP LIMITING THE EXAM. 4. SMALL POLYPS ASCENDING COLON AND TRANSVERSE COLON. 5. DIVERTICULOSIS. 6. SMALL INTERNAL/EXTERNAL HEMORRHOIDS. PROCEDURE: 1. EGD with cold biopsy to small bowel to evaluate for celiac sprue. 2. Cold biopsy antrum to evaluate for Helicobacter pylori. 3. Cold biopsy distal esophagus to evaluate for a short segment of early Mcnally's vs gastroesophagitis. 4. Colonoscopy to terminal ileum with hot snare polypectomy of 2-3 small transverse colon polyps. 5. Hot snare polypectomy small ascending colon polyp. 6. Hot biopsy of smaller transverse colon polyp. 7. Random cold biopsies of right colon and proximal ascending and proximal transverse colon to evaluate for microscopic colitis. SURGEON: Dr. Carlos Morris. ANESTHESIA: MAC. ESTIMATED BLOOD LOSS: Minimal. INDICATIONS: As noted above. Risks and benefits explained in detail, but not limited to. Consent was obtained. DESCRIPTION OF PROCEDURE AND FINDINGS: The patient was taken to the OR. MAC anesthesia was induced. After official time-out, no disagreement in planned procedure. Bite block positioned. Video gastroscope easily passed down the esophagus through the patent pylorus to the junction of the 2nd and 3rd portion of the duodenum. The duodenum and duodenal bulb were grossly unremarkable, but given his symptoms, felt he warranted testing for celiac sprue. Cold biopsy taken of small bowel for celiac sprue. The scope pulled back into the stomach. He had some mild gastritis. Cold biopsy taken to evaluate for Helicobacter pylori. On retroflex, there were no signs of any large hiatal hernia. The scope was straightened. Other than the gastritis, no signs of ulcers. No signs of any other masses or any other mucosal lesions other than the gastritis. The scope pulled back. Gastroesophageal junction at 40 cm. A short segment of possible early Mcnally's vs gastroesophagitis. Cold biopsy was taken. Good hemostasis noted. The remainder of the esophagus was grossly unremarkable. Attention was then turned to the colonoscopy. Digital rectal exam did not reveal any rectal masses. He did have some small internal/external hemorrhoids. Video colonoscope inserted and passed up through the very tortuous sigmoid, descending, and transverse colon. With external pressure, the scope was able to be passed down the ascending colon. The ileocecal valve and appendiceal orifice were visualized as well as the very tip of the terminal ileum was grossly unremarkable. No gross signs of Crohn's disease at this point and time. Prep overall was very poor with several areas of liquidy, semi-solid, and solid stool chunks limiting the exam. This was suction irrigated through the scope adequately and was suction irrigated as well as possible, but did limit the exam for small lesions. On withdrawal of the scope, a small polyp in the ascending colon was removed with hot snare polypectomy and brief bursts of cautery. The scope pulled back to the transverse colon where 2 or 3 polyps were removed with hot snare polypectomy and brief bursts of cautery. There was another even smaller polyp that was removed with hot biopsy forceps and brief bursts of cautery elevating it well away from the bowel wall. Good hemostasis was noted. Otherwise, some random cold biopsies were taken in the ascending colon and proximal transverse colon to evaluate for microscopic colitis. There was no gross macroscopic colitis at this time, but given his CT findings in the past and symptoms, it was felt it warranted biopsy for microscopic colitis. The scope was carefully withdrawn. Other than mild diverticulosis, he did not have any signs of any large polyps, masses, or obstructing lesions. Again, prep did limit the exam for potentially small lesions. He had some internal/external hemorrhoids in the rectum. Otherwise, again, no obvious signs of any large polyps, masses, or obstructing lesions. Again, the very poor prep did very much limit the exam. No obvious signs of the exact etiology of his weight loss was noted on endoscopic exam, but biopsies had been taken for further evaluation. Again, the very poor prep limited colon exam.
== END 2016-07-22 13:30 | disposition home or self-care (01) | DRG 392 ==
LOC: MED SURG 12:14 → OBSVTOIN 12:14
PROVIDERS: ADMIT Internal Medicine; ATTEND Family Medicine
PROC: 0DB88ZX Excision of Small Intestine, Via Natural or Artificial Opening Endoscopic, Diagnostic (ICD-10-PCS; principal; 2016-07-22)
PROC: 0DB38ZX Excision of Lower Esophagus, Via Natural or Artificial Opening Endoscopic, Diagnostic (ICD-10-PCS; 2016-07-22)
PROC: 0DB68ZX Excision of Stomach, Via Natural or Artificial Opening Endoscopic, Diagnostic (ICD-10-PCS; 2016-07-22)
PROC: 0DBL8ZX Excision of Transverse Colon, Via Natural or Artificial Opening Endoscopic, Diagnostic (ICD-10-PCS; 2016-07-22)
PROC: 0DBK8ZX Excision of Ascending Colon, Via Natural or Artificial Opening Endoscopic, Diagnostic (ICD-10-PCS; 2016-07-22)
PROC: 0DBL8ZX Excision of Transverse Colon, Via Natural or Artificial Opening Endoscopic, Diagnostic (ICD-10-PCS; 2016-07-22)
PROC: 0DBF8ZX Excision of Right Large Intestine, Via Natural or Artificial Opening Endoscopic, Diagnostic (ICD-10-PCS; 2016-07-22)
PROC: 0DBL8ZX Excision of Transverse Colon, Via Natural or Artificial Opening Endoscopic, Diagnostic (ICD-10-PCS; 2016-07-22)
PROC: 0DBK8ZX Excision of Ascending Colon, Via Natural or Artificial Opening Endoscopic, Diagnostic (ICD-10-PCS; 2016-07-22)
DX: K29.70 Gastritis, unspecified, without bleeding (principal); K92.1 Melena; D12.2 Benign neoplasm of ascending colon; D12.3 Benign neoplasm of transverse colon; K52.9 Noninfective gastroenteritis and colitis, unspecified; K57.90 Diverticulosis of intestine, part unspecified, without perforation or abscess without bleeding; K64.4 Residual hemorrhoidal skin tags; K64.8 Other hemorrhoids; J44.9 Chronic obstructive pulmonary disease, unspecified; E11.9 Type 2 diabetes mellitus without complications; Z79.4 Long term (current) use of insulin; Z79.899 Other long term (current) drug therapy
CPT/HCPCS: 00740; 00810; 36415; 74022; 74177; 80053; 82272; 82962; 83036; 83605; 83735; 84443; 85025; 85027; 85610; 87040; 87081; 93005; 94660; 94760; J1956; J2270; J2405; J2704

== ENCOUNTER 2016-11-28 09:33 | Day surgery (SDC) | payer MEDICARE, SELFPAY ==
[~2016-11-28 09:33] MED LIST: Kenalog-40 IM ONE; Lactated Ringers 1,000 ML IV ONE; Sensorcaine 0.25% 10 ML IJ ONE
[2016-11-28] MEDS ORDERED: DIPRIVAN 200 MG/20 ML IV ONE (11:00)
--- NOTE | 2016-11-28 17:19 | XRAY ---
5 seconds fluoroscopy time in surgery for right side L2-5 MBB.
--- NOTE | 2016-11-30 02:36 | XRAY ---
Indication: Right L2-L5 MBB. Intraoperative fluoroscopy was provided for 5 seconds. Single digital spot image submitted for interpretation demonstrates 4 spinal needles with the tips projected over the expected course of the right L2-L5 nerve roots. Correlate with intraoperative findings/report.
== END 2016-11-28 12:50 | disposition home or self-care (01) ==
LOC: SDC-PAIN 09:33
PROVIDERS: ATTEND Pain Medicine Interventional Pain Medicine
DX: M47.816 Spondylosis without myelopathy or radiculopathy, lumbar region (principal); M54.5 Low back pain; M54.16 Radiculopathy, lumbar region; M51.16 Intervertebral disc disorders with radiculopathy, lumbar region; Z79.891 Long term (current) use of opiate analgesic
CPT/HCPCS: 64493; 64494; 64495; 72020; 77003; J2704; J3301

== ENCOUNTER 2017-07-09 21:50 | Emergency (ER) | payer MEDICARE, SELFPAY ==
[2017-07-09 22:23] VITALS: O2SAT 96
[2017-07-09] MEDS ORDERED: PROVENTIL 2.5 MG/3 ML NEB IH ONE ×2 (22:27→22:40)
[2017-07-09] MEDS ORDERED: Zithromax 500 MG/ 250 ML NaCl Premix 500 MG/250 ML IVPB IV STA (22:27)
[2017-07-09] MEDS ORDERED: ROCEPHIN 1 Gm-D5w 50 ml Bag** 1 G/50 ML IVPB IV STA (22:27)
[2017-07-09] MEDS ORDERED: Robitussin-Dm Syrup PO ONE (22:27)
[2017-07-09] MEDS ORDERED: Sodium Chloride 0.9% 1000 ML 1,000 ML IV SCH (22:30)
--- NOTE | 2017-07-09 22:30 | ERPHSYRPT ---
- History of Present Illness Time Seen by Provider: 07/09/17 22:15 Source: patient Exam Limitations: no limitations Patient Subjective Stated Complaint: sob x 2 weeks with cough.. states difficulty breathing tonight. received a RX for levaquin today and took 1 dose. will start steriods in the AM> Triage Nursing Assessment: alert and oriented. no distress. states increasiung SOB. called MD today and received antibiotics and steriods. has taken 1 levaquin. staets pain in lower rib area from coughing. productive with white sputum. lungs clear bliat. Physician History: FOR THE PAST 2 WEEKS PT HAS HAD A COUGH PRODUCTIVE OF WHITE PHLEGM. TODAY PT HAS ABDOMINAL SORENESS FROM COUGHING, SHORTNESS OF AIR AND A HEADACHE WORSE WITH COUGHING. PT DENIES CHEST PAIN, FEVER, VOMITING. Allergies/Adverse Reactions: Penicillins Allergy (Severe, Verified 07/17/16 08:28) tongue swelling Home Medications: Albuterol Sulfate [Ventolin Hfa] 1 gm IH DAILY 07/17/16 [History] Albuterol/Ipratropium 3ml Neb* [DUONEB 0.5-3 MG/3 ml Neb] 3 ml NEB QID [History] Fluticasone/Vilanterol [Breo Ellipta 100-25 Mcg INH] 1 each IH DAILY 07/17/16 [ History] Hydrocodone Bit/Acetaminophen [Hydrocodon-Acetaminophn 10-325] 1 tab PO TID [History] Lisinopril 20 mg [Zestril 20 MG] 20 mg PO DAILY 07/17/16 [History] Metformin HCl [Fortamet] 500 mg PO BID 07/17/16 [History] Zolpidem Tartrate [Ambien] 10 mg PO HS 07/17/16 [History] Clopidogrel Bisulfate 75 mg [PLAVIX 75 MG Tablet] 75 mg PO QAM 07/20/16 [ History] Amlodipine Besylate 5 mg [Norvasc 5 mg] 5 mg PO DAILY 10/12/16 [History] Carvedilol 25 mg PO BID 10/12/16 [History] Nitroglycerin 0.4 mg Tablet [Nitrostat 0.4 MG Tablet] 0.4 mg SL Q5MIN PRN MR X 3 PRN 10/12/16 [History] Hx Tetanus, Diphtheria Vaccination/Date Given: Yes Hx Influenza Vaccination/Date Given: Yes Hx Pneumococcal Vaccination/Date Given: Yes - Review of Systems Constitutional: No Fever Respiratory: Cough, Dyspnea Cardiac: No Chest Pain Abdominal/Gastrointestinal: Abdominal Pain, No Vomiting Neurological: Headache All Other Systems: Reviewed and Negative - Past Medical History Pertinent Past Medical History: Yes Neurological History: No Pertinent History ENT History: No Pertinent History Cardiac History: High Cholesterol, Hypertension, Myocardial Infarction ([place]) Respiratory History: COPD Endocrine Medical History: Diabetes Type II Musculoskeletal History: No Pertinent History GI Medical History: GERD History: No Pertinent History Psycho-Social History: Anxiety Male Reproductive Disorders: No Pertinent History Other Medical History: sleep apnea-cpap at night - Past Surgical History Past Surgical History: Yes Neuro Surgical History: No Pertinent History Cardiac: Cardiac Catheterization, Cardiac Stent Respiratory: No Pertinent History Gastrointestinal: No Pertinent History Genitourinary: No Pertinent History Musculoskeletal: No Pertinent History Male Surgical History: No Pertinent History - Social History Smoking Status: Never smoker Exposure to second hand smoke: No Drug Use: none Patient Lives Alone: No - Nursing Vital Signs Nursing Vital Signs: Initial Vital Signs Temperature 97.8 F 07/09/17 22:08 Pulse Rate 78 07/09/17 22:08 Respiratory Rate 20 07/09/17 22:08 Blood Pressure 119/66 07/09/17 22:08 O2 Sat by Pulse Oximetry 96 07/09/17 22:08 Pain Scale Pain Intensity 5 - Physical Exam General Appearance: alert Eye Exam: PERRL/EOMI Ears, Nose, Throat Exam: moist mucous membranes, TM abnormal (L) (LEFT TM HAS CENTRAL INJECTION ), pharyngeal erythema Neck Exam: normal inspection Respiratory Exam: lungs clear Cardiovascular Exam: normal heart sounds Gastrointestinal/Abdomen Exam: soft, normal bowel sounds Extremity Exam: normal inspection, No pedal edema Neurologic Exam: alert, cooperative Skin Exam: warm, dry SpO2 Interpretation: normal SpO2: 96 Oxygen Delivery: Room Air - Course Nursing assessment & vital signs reviewed: Yes EKG Interpreted by Me: RATE (71), Sinus Rhythm, NORMAL AXIS, NORMAL INTERVALS - Radiology Exams Chest X-ray Interpretation: Interpreted by me, No Pneumonia - CT Exams Abdomen/Pelvis CT Interpretation: Tele-radiologist Report (NEGATIVE FOR ACUTE INFLAMMATORY PROCESS IN THE ABDOMEN OR PELVIS.) Ordered Tests: Active Orders 24 hr Category Date Time Status Belt Notcher STAT Care 07/09/17 22:27 Active EKG-ER Only STAT Care 07/09/17 22:25 Active IV Insertion STAT Care 07/09/17 22:25 Active Oxygen-ED Only NASAL CANNULA 2 lpm Care 07/09/17 22:25 Active ABDOMEN AND PELVIS W/0 CONTRAS [CT] Stat Exams 07/10/17 00:11 Taken CHEST 2 VIEWS (PA AND LAT) Stat Exams 07/09/17 22:26 Taken AMYLASE Stat Lab 07/09/17 22:55 Completed CBC W DIFF Stat Lab 07/09/17 22:55 Completed CMP Stat Lab 07/09/17 22:55 Completed CULTURE, THROAT Stat Lab 07/09/17 22:55 Received CULTURE,SPUTUM Stat Lab 07/09/17 22:28 Uncollected LIPASE Stat Lab 07/09/17 22:55 Completed MAGNESIUM Stat Lab 07/09/17 22:55 Completed Manual Differential NC Stat Lab 07/09/17 22:55 Completed NT PRO BNP Stat Lab 07/09/17 22:55 Completed STREP SCREEN-BETA A Stat Lab 07/09/17 22:55 Completed TROPONIN Q3H Lab 07/09/17 22:55 Completed TROPONIN Q3H Lab 07/10/17 01:30 Ordered TROPONIN Q3H Lab 07/10/17 04:30 Ordered TROPONIN Q3H Lab 07/10/17 07:30 Ordered TROPONIN Q3H Lab 07/10/17 10:30 Ordered UA W/RFX UR CULTURE Stat Lab 07/09/17 22:26 Ordered Respiratory Nebulizer STAT RT 07/09/17 22:29 Completed Medication Summary Generic Name Dose Route Start Last Admin Trade Name Freq PRN Reason Stop Dose Admin Sodium Chloride 1,000 mls @ 100 mls/hr 07/09/17 22:30 07/09/17 23:33 Sodium Chloride 0.9% 1000 Ml IV 08/08/17 22:29 100 mls/hr .Q10H KENYON Administration Discontinued Medications Generic Name Dose Route Start Last Admin Trade Name Freq PRN Reason Stop Dose Admin Hydrocodone Bitart/Acetaminophen 2 tab 07/10/17 00:03 07/10/17 00:06 [place] 5/325 Mg PO 07/10/17 00:04 2 tab STAT ONE Administration Hydrocodone Bitart/Acetaminophen Confirm 07/10/17 00:06 [place] 5/325 Mg Administered 07/10/17 00:07 Dose 2 tab .ROUTE .STK-MED ONE Albuterol Sulfate 2.5 mg 07/09/17 22:27 07/09/17 22:43 Proventil 2.5 Mg/3 Ml Neb IH 07/09/17 22:28 2.5 mg STAT ONE Administration Albuterol Sulfate Confirm 07/09/17 22:40 Proventil 2.5 Mg/3 Ml Neb Administered 07/09/17 22:41 Dose 2.5 mg IH .STK-MED ONE Guaifenesin/Dextromethorphan 10 ml 07/09/17 22:27 07/09/17 23:33 Robitussin-Dm Syrup PO 07/09/17 22:28 10 ml STAT ONE Administration Ceftriaxone Sodium/Dextrose 1 g in 50 mls @ 100 mls/hr 07/09/17 22:27 23:34 Rocephin 1 Gm-D5w 50 Ml Bag IV 07/09/17 22:56 100 mls/hr STAT STA Administration Azithromycin 500 mg in 250 mls @ 250 mls/hr 07/09/17 22:27 07/10/17 00:10 Zithromax 500 Mg/ 250 Ml Nacl Premix IV 07/09/17 23:26 250 mls/hr STAT STA Administration Azithromycin Confirm 07/09/17 23:24 Zithromax 500 Mg/ 250 Ml Nacl Premix Administered 07/09/17 23:25 Dose 500 mg in 250 mls @ ud IV .STK-MED ONE Ceftriaxone Sodium/Dextrose Confirm 07/09/17 23:24 Rocephin 1 Gm-D5w 50 Ml Bag Administered 07/09/17 23:25 Dose 1 g in 50 mls @ ud IV .STK-MED ONE Lab/Rad Data: Laboratory Result Diagrams 07/09/17 22:55 07/09/17 22:55 Laboratory Results 07/09/17 07/09/17 07/09/17 Range/Units 22:55 22:55 22:55 WBC (4.0-10.5) K/mm3 RBC (4.1-5.6) M/mm3 Hgb (12.5-18.0) gm/dl Hct (42-50) % MCV (78-100) fl MCH (26-32) pg MCHC (32-36) g/dl RDW (11.5-14.0) % Plt Count (150-450) K/mm3 MPV (6-9.5) fl Segmented Neutrophils (36.-66.) % Lymphocytes (Manual) (24-44) % Monocytes (Manual) (0.0-12.0) % Eosinophils (Manual) (0.00-3.0) % Basophils (Manual) (0.0-1.0) % Differential Comment Platelet Estimate (NORMAL) Sodium (136-145) mEq/L Potassium (3.5-5.1) mEq/L Chloride (98-107) mEq/L Carbon Dioxide (21-32) mEq/L Anion Gap (5-15) MEQ/L BUN (9-20) mg/dL Creatinine (0.55-1.30) mg/dl Estimated GFR ML/MIN Glucose (70-110) MG/DL Calcium (8.5-10.1) mg/dL Magnesium (1.8-2.4) mg/dL Total Bilirubin (0.2-1.0) mg/dL AST (15-37) U/L ALT (12-78) U/L Alkaline Phosphatase (46-116) U/L Troponin I < 0.017 (0.000-0.056) ng/ml NT-Pro-B Natriuret Pep (0-125) pg/ml Serum Total Protein (6.4-8.2) gm/dL Albumin (3.4-5.0) g/dL Amylase (25-115) U/L Lipase (73-393) U/L Influenza Type A Ag NEGATIVE (NEGATIVE) Influenza Type B Ag NEGATIVE (NEGATIVE) RSV (PCR) NEGATIVE (Negative) Streptococcus Screen NEGATIVE (Negative) 07/09/17 07/09/17 Range/Units 22:55 22:55 WBC 8.3 (4.0-10.5) K/mm3 RBC 4.54 (4.1-5.6) M/mm3 Hgb 13.1 (12.5-18.0) gm/dl Hct 40.1 L (42-50) % MCV 88.3 (78-100) fl MCH 28.9 (26-32) pg MCHC 32.7 (32-36) g/dl RDW 12.4 (11.5-14.0) % Plt Count 260 (150-450) K/mm3 MPV 9.0 (6-9.5) fl Segmented Neutrophils 63 (36.-66.) % Lymphocytes (Manual) 27 (24-44) % Monocytes (Manual) 7 (0.0-12.0) % Eosinophils (Manual) 2 (0.00-3.0) % Basophils (Manual) 1 (0.0-1.0) % Differential Comment NORMAL Platelet Estimate NORMAL (NORMAL) Sodium 139 (136-145) mEq/L Potassium 3.9 (3.5-5.1) mEq/L Chloride 106 (98-107) mEq/L Carbon Dioxide 23.2 (21-32) mEq/L Anion Gap 13.8 (5-15) MEQ/L BUN 37 H (9-20) mg/dL Creatinine 1.48 H (0.55-1.30) mg/dl Estimated GFR 53 ML/MIN Glucose 177 H (70-110) MG/DL Calcium 8.3 L (8.5-10.1) mg/dL Magnesium 2.1 (1.8-2.4) mg/dL Total Bilirubin 0.20 (0.2-1.0) mg/dL AST 17 (15-37) U/L ALT 50 (12-78) U/L Alkaline Phosphatase 77 (46-116) U/L Troponin I (0.000-0.056) ng/ml NT-Pro-B Natriuret Pep 19 (0-125) pg/ml Serum Total Protein 6.5 (6.4-8.2) gm/dL Albumin 3.2 L (3.4-5.0) g/dL Amylase 83 (25-115) U/L Lipase 557 H (73-393) U/L Influenza Type A Ag (NEGATIVE) Influenza Type B Ag (NEGATIVE) RSV (PCR) (Negative) Streptococcus Screen (Negative) - Departure Time of Disposition: 01:13 Departure Disposition: Home Clinical Impression: LOM, PHARYNGITIS, ELEVATED LIPASE, ABDOMINAL PAIN, COPD Condition: Stable Critical Care Time: No Referrals: LISET DAVIS [Primary Care Provider] - Instructions: Exacerbation of COPD (DC) Additional Instructions: FOLLOW UP WITH PRIVATE DOCTOR TOMORROW. Prescriptions: Azithromycin 250 mg [Zithromax 250 MG TABLET] 250 mg PO ZPACK #6 tablet
[2017-07-09 23:01] LABS: Granulocyte Absolute (ANC) 5.17 (1.4-6.9); Hematocrit 40.1 % (42-50); Hemoglobin 13.1 gm/dl (12.5-18.0); Mean Cell Volume 88.3 fl (78-100); Mean Corpuscular Hemoglobin 28.9 pg (26-32); Mean Corpuscular Hgb Concent. 32.7 g/dl (32-36); Platelet Count 260 K/mm3 (150-450); Red Blood Count 4.54 M/mm3 (4.1-5.6); Red Cell Distribution Width 12.4 % (11.5-14.0); White Blood Count 8.3 K/mm3 (4.0-10.5)
[2017-07-09] MEDS ORDERED: Zithromax 500 MG/ 250 ML NaCl Premix 500 MG/250 ML IVPB IV ONE (23:24)
[2017-07-09] MEDS ORDERED: ROCEPHIN 1 Gm-D5w 50 ml Bag** 1 G/50 ML IVPB IV ONE (23:24)
[2017-07-09] MEDS ORDERED: Sodium Chloride 0.9% 1000 ML 1,000 ML ONE (23:24)
[2017-07-09 23:35] LABS: ALBUMIN 3.2 g/dL (3.4-5.0); ANION GAP 13.8 MEQ/L (5-15); BILIRUBIN,TOTAL 0.2 mg/dL (0.2-1.0); Calcium 8.3 mg/dL (8.5-10.1); Carbon Dioxide 23.2 mEq/L (21-32); Creatinine 1 1.48 mg/dl (0.55-1.30); MAGNESIUM 2.1 mg/dL (1.8-2.4); Potassium 3.9 mEq/L (3.5-5.1); Total Protein 6.5 gm/dL (6.4-8.2)
[2017-07-10] MEDS ORDERED: NORCO 5/325 MG PO ONE (00:03)
[2017-07-10] MEDS ORDERED: NORCO 5/325 MG ONE (00:06)
[2017-07-10 00:17] VITALS: BP 113/59; PULSE 73
[2017-07-10 00:42] LABS: INFLUENZA A NEGATIVE (NEGATIVE); INFLUENZA B NEGATIVE (NEGATIVE); RESPIRATORY SYNCTIAL VIRUS NEGATIVE (Negative)
[2017-07-10 01:06] LABS: Basophil 1 % (0.0-1.0); Eosinophil 2 % (0.00-3.0); Lymphocytes 27 % (24-44); Monocyte 7 % (0.0-12.0); Neutrophils 63 % (36.-66.); Platelet Estimate NORMAL (NORMAL); Total Cells Counted 100
[2017-07-10 01:22] LABS: Appearance CLEAR (CLEAR)
[2017-07-10 01:23] LABS: Bilirubin NEGATIVE (NEGATIVE); Blood NEGATIVE Ery/ul (0-5); Glucose 250 mg/dL (NEGATIVE); Ketones NEGATIVE (NEGATIVE); Leukocyte Esterase NEGATIVE (NEGATIVE); Nitrite NEGATIVE (NEGATIVE); Protein,Urine Dip NEGATIVE (Negative); Specific Gravity 1.025 (1.005-1.025); Urobilinogen NORMAL mg/dL (0-1)
--- NOTE | 2017-07-10 08:56 | XRAY ---
Indication: Abdominal pain. Elevated lipase. History diverticulosis. Multiple contiguous axial images obtained through the abdomen and pelvis without contrast as ordered. Comparison: July 21, 2016. Lung bases demonstrates minimal bibasilar dependent atelectasis and inferior lingular fibrosis/scarring. Heart is not enlarged. Stable tiny distal paraesophageal calcified nodes. Noncontrasted stomach and bowel loops appear nonobstructed again with minimal sigmoid diverticulosis. Mild fecal debris in the ascending and transverse colon. Normal appendix. No free fluid/air. Remaining liver, gallbladder, pancreas, spleen, adrenal glands, kidneys, ureters, and bladder appear unremarkable for noncontrast exam. Stable mild aortoiliac calcifications without AAA. Osseous structures intact again with lumbosacral Junction degenerative changes. New small fatty right inguinal hernia. Impression: 1. Stable sigmoid diverticulosis without diverticulitis. 2. New small fatty right inguinal hernia. 3. No acute intra-abdominal/pelvic abnormalities on this noncontrast exam. Comment: Preliminary interpretation was made by [facility]. No critical discrepancy. CT DI 17.02
--- NOTE | 2017-07-10 08:58 | XRAY ---
Indication: Cough. Comparison: November 15, 2016. PA/lateral chest remains hyperinflated and clear. Heart is not enlarged. Bony thorax intact. No new/acute findings. Impression: Stable nonacute hyperinflated chest.
== END 2017-07-10 02:13 | disposition home or self-care (01) ==
LOC: ED 21:50
DX: J02.9 Acute pharyngitis, unspecified (principal); R51 Headache; Z79.899 Other long term (current) drug therapy; H66.92 Otitis media, unspecified, left ear; R10.9 Unspecified abdominal pain; J44.9 Chronic obstructive pulmonary disease, unspecified
CPT/HCPCS: 36000; 36415; 71046; 74176; 80053; 81002; 82150; 83690; 83735; 83880; 84484; 85025; 87040; 87070; 87430; 87631; 93005; 93041; 94640; 96360; 96361; 96365; 96367; 99284; J0456; J0696; A9270-GY

== ENCOUNTER 2019-06-11 17:42 | Emergency (ER) | payer MEDICARE ==
[2019-06-11] MEDS ORDERED: Catapres 0.1 MG PO ONE (18:01)
[2019-06-11] MEDS ORDERED: Catapres 0.1 MG ONE (18:06)
[2019-06-11 18:19] LABS: Absolute Neutrophil Ct (ANC) 3.92 (1.4-6.9); BASOPHIL % 0.4 % (0.0-0.4); Basophil (Absolute #) 0.03 (0-0.4); Eosinophil % 1.6 % (0.00-5.0); Eosinophil (Absolute #) 0.11 (0-0.5); Hematocrit 38.6 % (42-50); Hemoglobin 12.9 gm/dl (12.5-18.0); Lymphocyte (Absolute #) 2.13 (1.0-4.6); Mean Cell Volume 87.5 fl (78-100); Mean Corpuscular Hemoglobin 29.3 pg (26-32); Mean Corpuscular Hgb Concent. 33.4 g/dl (32-36); Mean Platelet Volume 8.8 fl (6-9.5); Monocyte (Absolute #) 0.67 (0.0-1.3); Monocytes % 9.8 % (0.0-12.0); Neutrophil % 57.2 % (36.0-66.0); Platelet Count 248 K/mm3 (150-450); Red Blood Count 4.41 M/mm3 (4.1-5.6); Red Cell Distribution Width 13.3 % (11.5-14.0); White Blood Count 6.9 K/mm3 (4.0-10.5)
[2019-06-11 18:54] LABS: ALBUMIN 4.3 g/dL (3.5-5.0); ALKALINE PHOSPHATASE 76 U/L (38-126); ANION GAP 12.7 MEQ/L (5-15); BLOOD UREA NITROGEN 21 mg/dL (9-20); CHLORIDE 103 mmol/L (98-107); Calcium 9.3 mg/dL (8.4-10.2); Carbon Dioxide 26 mmol/L (22-30); Creatinine 1 0.99 mg/dL (0.66-1.25); Glucose 129 mg/dL (74-106); Potassium 3.9 mmol/L (3.5-5.1); SGOT/AST 20 U/L (17-59); SGPT/ALT 28 U/L (0-50); SODIUM 138 mmol/L (137-145); Total Protein 7.5 g/dL (6.3-8.2)
--- NOTE | 2019-06-11 18:55 | ERPHSYRPT ---
- History of Present Illness Time Seen by Provider: 06/11/19 17:44 Exam Limitations: no limitations Patient Subjective Stated Complaint: Patient states " B/P is high" Stated B/P prior to coming to ER was 144/ 97 and 144/135. Patient states has H/A. Patient daughter stated :his speech has been slurred." Triage Nursing Assessment: Patient ambulated to room with steady gait. Patient utilizing clear sentences. Skin color WNL. Patient denies pain or discomfort. Patient denies SOB or chest pain. Patient has no dizziness. Physician History: Patient is here with high blood pressure. Patient is asymptomatic at this time Patient states he has no CP, SOB, N/V/D. He states he was taking his BP at home and it was 140/90s. Therefore, he continued to take it and it continued to be slightly elevated. Patient has not taken his home clonidine. He is suppose to take this PRN for his HTN. But, he did not take it tonight. Patient states he has no headache, dizzy, or problems with his vision. Patient states he called his supervisor [employer], Dr. Macias. Dr. Macias wanted a full cardiac workup tonight, per the patient. Dr. Macias also wants a head CT. Patient states he told Dr. Macias he was slurring his speech earlier this month. Patient is currently not slurring his speech. He has no difficulty speaking on my exam. Timing/Duration: today Activities at Onset: none Aspirin Treatment Today: no aspirin today Allergies/Adverse Reactions: Penicillins Allergy (Severe, Verified 05/13/19 08:14) tongue swelling Home Medications: Albuterol Sulfate [Ventolin Hfa] 1 gm IH DAILY 07/17/16 [History] Albuterol/Ipratropium 3ml Neb* [DUONEB 0.5-3 MG/3 ml Neb] 3 ml NEB QID [History] Metformin HCl [Fortamet] 1,000 mg PO BID 07/17/16 [History] Clopidogrel Bisulfate 75 mg [PLAVIX 75 MG Tablet] 75 mg PO QAM 07/20/16 [ History] Amlodipine Besylate 5 mg [Norvasc 5 mg] 5 mg PO DAILY 10/12/16 [History] Nitroglycerin 0.4 mg Tablet [Nitrostat 0.4 MG Tablet] 0.4 mg SL Q5MIN PRN MR X 3 PRN 10/12/16 [History] Albuterol Sulfate [Proventil Hfa] 6.7 gm IH Q4HPRN PRN 09/03/18 [History] Amitriptyline HCl 75 mg PO HS 09/03/18 [History] Aspirin EC 325 mg [Ecotrin 325 MG] 81 mg PO DAILY 09/03/18 [History] Atorvastatin Calcium [Lipitor] 10 mg PO DAILY 09/03/18 [History] Carvedilol 12.5 mg [Coreg 12.5 mg] 12.5 mg PO BID 09/03/18 [History] Fluticasone/Umeclidin/Vilanter [Trelegy Ellipta 100-62.5-25] 1 each IH DAILY 12/17 [History] Ondansetron HCl [Zofran] 4 mg PO Q6HPRN PRN 09/03/18 [History] Oxycodone HCl [Oxycodone HCl ER] 15 mg PO DAILY 09/03/18 [History] Trazodone HCl 50 mg [Desyrel 50 mg] 150 mg PO HS 09/03/18 [History] Hx Tetanus, Diphtheria Vaccination/Date Given: Yes Hx Influenza Vaccination/Date Given: Yes Hx Pneumococcal Vaccination/Date Given: Yes - Review of Systems Constitutional: No Fever, No Chills Eyes: No Symptoms Ears, Nose, & Throat: No Symptoms Respiratory: No Cough, No Dyspnea Cardiac: No Chest Pain, No Edema, No Syncope Abdominal/Gastrointestinal: No Abdominal Pain, No Nausea, No Vomiting, No Diarrhea Genitourinary Symptoms: No Dysuria Musculoskeletal: No Back Pain, No Neck Pain Skin: No Rash Neurological: No Dizziness, No Focal Weakness, No Sensory Changes Psychological: No Symptoms Endocrine: No Symptoms All Other Systems: Reviewed and Negative - Past Medical History Pertinent Past Medical History: Yes Neurological History: No Pertinent History ENT History: No Pertinent History Cardiac History: Coronary Artery Disease, Myocardial Infarction ([place]), High Cholesterol, Hypertension Respiratory History: Sleep Apnea, COPD Endocrine Medical History: Diabetes Type II Musculoskeletal History: No Pertinent History, Arthritis GI Medical History: GERD History: No Pertinent History Psycho-Social History: No Pertinent History, Anxiety Male Reproductive Disorders: No Pertinent History Other Medical History: pt wears 2 L N/C at night with c-pap - Past Surgical History Past Surgical History: Yes Neuro Surgical History: No Pertinent History Cardiac: Cardiac Stent, Cardiac Catheterization Respiratory: No Pertinent History Gastrointestinal: No Pertinent History, Other Genitourinary: No Pertinent History Musculoskeletal: No Pertinent History Male Surgical History: No Pertinent History Other Surgical History: cardiac stent x three in 2012,cardiac stent in 2015, last heart cath . in January 2018, Egd, colonoscopy with polypectomy - Social History Smoking Status: Never smoker Exposure to second hand smoke: No Drug Use: none Patient Lives Alone: No - Nursing Vital Signs Nursing Vital Signs: Initial Vital Signs Temperature 98 F 06/11/19 17:47 Pulse Rate 78 06/11/19 17:47 Respiratory Rate 18 06/11/19 17:47 Blood Pressure 148/102 06/11/19 17:47 O2 Sat by Pulse Oximetry 99 06/11/19 17:47 Pain Scale Pain Intensity 0 - Physical Exam General Appearance: no apparent distress, alert Eye Exam: PERRL/EOMI, eyes nml inspection Ears, Nose, Throat Exam: normal ENT inspection, moist mucous membranes Neck Exam: normal inspection, non-tender, supple, full range of motion Respiratory Exam: normal breath sounds, lungs clear, No respiratory distress Cardiovascular Exam: regular rate/rhythm, normal heart sounds Gastrointestinal/Abdomen Exam: soft, No tenderness, No mass Back Exam: normal inspection, No CVA tenderness, No vertebral tenderness Extremity Exam: normal inspection, normal range of motion Neurologic Exam: alert, oriented x 3, cooperative, normal mood/affect, sensation nml, No motor deficits, No motor weakness, No facial droop, No slurred speech, No aphasia, No dysarthria, No abnormal gait Skin Exam: normal color, warm, dry SpO2: 99 Ordered Tests: Active Orders 24 hr Category Date Time Status Quartz Cutter STAT Care 06/11/19 17:59 Active EKG-ER Only STAT Care 06/11/19 17:59 Active IV Insertion STAT Care 06/11/19 17:59 Active Pulse Oximetry (ED) STAT Care 06/11/19 17:59 Active CHEST 2 VIEWS (PA AND LAT) Stat Exams 06/11/19 17:59 Taken HEAD WITHOUT CONTRAST [CT] Stat Exams 06/11/19 18:00 Taken CBC W DIFF Stat Lab 06/11/19 18:15 Completed CMP Stat Lab 06/11/19 18:15 Completed TROPONIN Q3H Lab 06/11/19 18:15 Completed Medication Summary Discontinued Medications Generic Name Dose Route Start Last Admin Trade Name Ramiro PRN Reason Stop Dose Admin Clonidine 0.1 mg 06/11/19 18:01 06/11/19 18:07 Catapres 0.1 Mg PO 06/11/19 18:02 0.1 mg STAT ONE Administration Clonidine Confirm 06/11/19 18:06 Catapres 0.1 Mg Administered 06/11/19 18:07 Dose 0.1 mg .ROUTE .STK-MED ONE Lab/Rad Data: Laboratory Result Diagrams 06/11/19 18:15 06/11/19 18:15 Laboratory Results 06/11/19 06/11/19 06/11/19 Range/Units 18:15 18:15 18:15 WBC 6.9 (4.0-10.5) K/mm3 RBC 4.41 (4.1-5.6) M/mm3 Hgb 12.9 (12.5-18.0) gm/dl Hct 38.6 L (42-50) % MCV 87.5 (78-100) fl MCH 29.3 (26-32) pg MCHC 33.4 (32-36) g/dl RDW 13.3 (11.5-14.0) % Plt Count 248 (150-450) K/mm3 MPV 8.8 (6-9.5) fl Gran % 57.2 (36.0-66.0) % Eos # (Auto) 0.11 (0-0.5) Absolute Lymphs (auto) 2.13 (1.0-4.6) Absolute Monos (auto) 0.67 (0.0-1.3) Lymphocytes % 31.0 (24.0-44.0) % Monocytes % 9.8 (0.0-12.0) % Eosinophils % 1.6 (0.00-5.0) % Basophils % 0.4 (0.0-0.4) % Absolute Granulocytes 3.92 (1.4-6.9) Basophils # 0.03 (0-0.4) Sodium 138 (137-145) mmol/L Potassium 3.9 (3.5-5.1) mmol/L Chloride 103 (98-107) mmol/L Carbon Dioxide 26 (22-30) mmol/L Anion Gap 12.7 (5-15) MEQ/L BUN 21 H (9-20) mg/dL Creatinine 0.99 (0.66-1.25) mg/dL Estimated GFR > 60.0 ML/MIN Glucose 129 H (74-106) mg/dL Calcium 9.3 (8.4-10.2) mg/dL Total Bilirubin 0.40 (0.2-1.3) mg/dL AST 20 (17-59) U/L ALT 28 (0-50) U/L Alkaline Phosphatase 76 (38-126) U/L Troponin I < 0.012 (0.000-0.034) ng/mL Serum Total Protein 7.5 (6.3-8.2) g/dL Albumin 4.3 (3.5-5.0) g/dL - Progress Progress: improved Air Movement: good Progress Note: 06/11/19 18:56 Patient has asymptotic hypertension at this point in time. He has a normal neurological exam on my physical. He no signs of end organ damage. I did tell the patient that treating asymptotic can actually worsen outcomes. Patient is very firm about Dr. Macias's workup. Therefore, we will obtain head CT, basic labs, EKG, troponin. 06/11/19 20:24 We treated patient with his home dose of clonidine. His blood pressure did initially improve. Cardiac work up returned negative tonight. Patient continued to be asymptotic. I did repeat my neurological exam with remained unchanged. I felt comfortable with a one time negative troponin given patient was symptom free. Head CT demonstrated no signs of stroke or other acute changes. While patient's blood pressure did stay elevated, he continued to be asymptomatic with a negative work-up. I do feel patient should be discharged home at this point in time with close follow up with his supervisor [employer]. I stated he could return here at any time if his symptoms changed or became worse. He did state his understanding. Patient's and adult daughter are at bedside tonight. I did discuss this with them. They will follow up as described. - Departure Departure Disposition: Home Clinical Impression: Hypertension Condition: Stable Critical Care Time: No Referrals: LISET DAVIS [Primary Care Provider] - Instructions: Prehypertension
[2019-06-11 20:16] VITALS: BP 161/130; PULSE 71
[2019-06-11 20:29] VITALS: O2SAT 99
--- NOTE | 2019-06-12 08:45 | XRAY ---
Indication: Headache. High blood pressure. Multiple contiguous axial images obtained through the head without contrast. Comparison: None Ventriculosulcal pattern appears symmetric with age-appropriate global atrophy. No acute intracranial hemorrhage, abnormal extra-axial fluid collection, or mass effect. Fourth ventricle is midline without hydrocephalus. Bailon-white matter differentiation preserved. Bony calvarium intact. Visualized paranasal sinuses and mastoid air cells are clear. Impression: Negative CT head without contrast exam. CT DI 54.17
--- NOTE | 2019-06-12 08:45 | XRAY ---
Indication: High blood pressure. Comparison: July 09, 2017. PA/lateral chest demonstrates new minimal right base subsegmental atelectasis/scarring with remaining heart and lungs normal. Bony thorax intact.
== END 2019-06-11 20:16 | disposition home or self-care (01) ==
LOC: ED 17:42
DX: I10 Essential (primary) hypertension (principal); J44.9 Chronic obstructive pulmonary disease, unspecified; G47.30 Sleep apnea, unspecified; I25.10 Atherosclerotic heart disease of native coronary artery without angina pectoris; E78.00 Pure hypercholesterolemia, unspecified; Z79.891 Long term (current) use of opiate analgesic; Z79.899 Other long term (current) drug therapy
CPT/HCPCS: 36415; 70450; 71046; 80053; 84484; 85025; 99284; A9270-GY

== ENCOUNTER 2020-01-12 16:37 | Emergency (ER) | payer MEDICARE ==
--- NOTE | 2020-01-12 16:39 | ERPHSYRPT ---
- History of Present Illness Time Seen by Provider: 01/12/20 16:39 Source: patient Exam Limitations: no limitations Physician History: Is a 54-year-old white male who is diabetic and presents with 1 week history of right sided midthoracic level back pain. Patient states that his spine and has no pain it is next to his spine. The pain shoots to the right side depending on how he moves. Patient denies any trauma. Patient does not want any narcotic pain medicine. Patient last saw his pain specialist at the end of November. Patient has a history of lower back pain which she receives occasional steroid injections for. Patient also does not want a chest x-ray or rib x-rays. Patient received a CAT scan of his chest the end of October 2019. Patient denies cough. Patient does not have chest pain. He is not short of breath. He has no abdominal pain. Timing/Duration: week(s) Method of Injury: other (No specific injury) Back Pain Location: paraspinous muscles (On the right side at the mid thoracic spinal level. No vertebral tenderness) Severity of Pain-Max: moderate Severity of Pain-Current: mild Modifying Factors: Improves With: movement Associated Symptoms: muscle spasms, No numbness in legs/feet, No sensory/motor loss, No tingling in legs/feet Previous symptoms: no prior history Allergies/Adverse Reactions: Penicillins Allergy (Severe, Verified 01/12/20 16:51) tongue swelling Home Medications: Albuterol Sulfate [Ventolin Hfa] 1 gm IH DAILY 07/17/16 [History] Albuterol/Ipratropium 3ml Neb* [DUONEB 0.5-3 MG/3 ml Neb] 3 ml NEB QID 07/17/16 [History] Metformin HCl [Fortamet] 1,000 mg PO BID 07/17/16 [History] Clopidogrel Bisulfate 75 mg [PLAVIX 75 MG Tablet] 75 mg PO QAM 07/20/16 [History] Amlodipine Besylate 5 mg [Norvasc 5 mg] 5 mg PO DAILY 10/12/16 [History] Nitroglycerin 0.4 mg Tablet [Nitrostat 0.4 MG Tablet] 0.4 mg SL Q5MIN PRN MR X 3 PRN 10/12/16 [History] Albuterol Sulfate [Proventil Hfa] 6.7 gm IH Q4HPRN PRN 09/03/18 [History] Amitriptyline HCl 75 mg PO HS 09/03/18 [History] Aspirin EC 325 mg [Ecotrin 325 MG] 81 mg PO DAILY 09/03/18 [History] Atorvastatin Calcium [Lipitor] 10 mg PO DAILY 09/03/18 [History] Carvedilol 12.5 mg [Coreg 12.5 mg] 12.5 mg PO BID 09/03/18 [History] Fluticasone/Umeclidin/Vilanter [Trelegy Ellipta 100-62.5-25] 1 each IH DAILY 09/03/18 [History] Ondansetron HCl [Zofran] 4 mg PO Q6HPRN PRN 09/03/18 [History] Oxycodone HCl [Oxycodone HCl ER] 15 mg PO DAILY 09/03/18 [History] Trazodone HCl 50 mg [Desyrel 50 mg] 150 mg PO HS 09/03/18 [History] Fluoxetine HCl 20 mg [Prozac 20 MG] 40 mg PO DAILY 01/12/20 [History] Levothyroxine Sodium 25 Mcg [Synthroid 25 Mcg] 25 mcg PO DAILY 01/12/20 [History] Hx Tetanus, Diphtheria Vaccination/Date Given: Yes Hx Influenza Vaccination/Date Given: Yes Hx Pneumococcal Vaccination/Date Given: Yes Travel Risk - International Travel Have you traveled outside of the country in past 3 weeks: No - Coronavirus Screening Are you exhibiting any of the following symptoms?: No Close contact with a COVID-19 positive Pt in past 14-21 Days: No - Review of Systems Constitutional: No Symptoms Eyes: No Symptoms Ears, Nose, & Throat: No Symptoms Respiratory: No Symptoms Cardiac: No Symptoms Abdominal/Gastrointestinal: No Symptoms Genitourinary Symptoms: No Symptoms Musculoskeletal: Back Pain Skin: No Symptoms Neurological: No Symptoms Psychological: No Symptoms Endocrine: No Symptoms Hematologic/Lymphatic: No Symptoms Immunological/Allergic: No Symptoms All Other Systems: Reviewed and Negative - Past Medical History Pertinent Past Medical History: Yes Neurological History: No Pertinent History ENT History: No Pertinent History Cardiac History: Coronary Artery Disease, Myocardial Infarction ([place]), High Cholesterol, Hypertension Respiratory History: Sleep Apnea, COPD Endocrine Medical History: Diabetes Type II Musculoskeletal History: No Pertinent History, Arthritis GI Medical History: GERD History: No Pertinent History Psycho-Social History: No Pertinent History, Anxiety Male Reproductive Disorders: No Pertinent History Other Medical History: pt wears 2 L N/C at night with c-pap - Past Surgical History Past Surgical History: Yes Neuro Surgical History: No Pertinent History Cardiac: Cardiac Stent, Cardiac Catheterization Respiratory: No Pertinent History Gastrointestinal: No Pertinent History, Other Genitourinary: No Pertinent History Musculoskeletal: No Pertinent History Male Surgical History: No Pertinent History Other Surgical History: cardiac stent x three in 2012,cardiac stent in 2015, last heart cath . in January 2018, Egd, colonoscopy with polypectomy - Social History Smoking Status: Never smoker Exposure to second hand smoke: No Drug Use: none Patient Lives Alone: No - Nursing Vital Signs Nursing Vital Signs: Initial Vital Signs Temperature 97.7 F 01/12/20 16:43 Pulse Rate 77 01/12/20 16:43 Respiratory Rate 16 01/12/20 16:43 Blood Pressure 136/94 01/12/20 16:43 O2 Sat by Pulse Oximetry 95 01/12/20 16:43 Pain Scale Pain Intensity [Anterior/ 2 Posterior Back] Pain Intensity 2 - Physical Exam General Appearance: no apparent distress, alert, anxiety Eye Exam: PERRL/EOMI, eyes nml inspection Ears, Nose, Throat Exam: normal ENT inspection, moist mucous membranes Neck Exam: normal inspection, non-tender, supple, full range of motion Respiratory Exam: normal breath sounds, lungs clear, airway intact, No chest tenderness, No respiratory distress Cardiovascular Exam: regular rate/rhythm, normal heart sounds, normal peripheral pulses Gastrointestinal Exam: soft, normal bowel sounds, No tenderness Rectal Exam: not done Back Exam: normal inspection, normal range of motion, muscle spasm (Right side paraspinous muscle level of mid thoracic spine. 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 as tested, normal mood/affect, nml cerebellar function, nml station & gait, sensation nml Skin Exam: normal color, warm, dry Lymphatic Exam: inguinal node tender (L), No adenopathy O2 Delivery: Room Air - Course Nursing assessment & vital signs reviewed: Yes Ordered Tests: Medication Summary Discontinued Medications Generic Name Dose Route Start Last Admin Trade Name Freq PRN Reason Stop Dose Admin Lorazepam 1 mg 01/12/20 17:08 Ativan 2 Mg/1 Ml Vial IM 01/12/20 17:09 STAT ONE Methylprednisolone Sodium Succinate 125 mg 01/12/20 17:08 Solu-Medrol 125 Mg IM 01/12/20 17:09 STAT ONE - Progress Progress: unchanged Counseled pt/family regarding: diagnosis, need for follow-up - Departure Departure Disposition: Home Clinical Impression: Muscle spasm of back Condition: Stable Critical Care Time: No Referrals: LISET DAVIS [Primary Care Provider] - Additional Instructions: Take medications as prescribed. Follow-up with your pain specialist tomorrow. Call them tomorrow to arrange for follow-up appointment Prescriptions: Carisoprodol 350 mg [Soma 350 mg] 350 mg PO Q12H PRN PRN #10 tablet MDD 2 PRN Reason: Muscle Spasms Naproxen 500 mg [Naprosyn 500 MG] 500 mg PO BID #10 tablet
[2020-01-12] MEDS ORDERED: Ativan 2 MG/1 ML VIAL IM ONE (17:08)
[2020-01-12] MEDS ORDERED: solu-MEDROL 125 MG IM ONE (17:08)
[2020-01-12] MEDS ORDERED: Ativan 2 MG/1 ML VIAL ONE (17:12)
[2020-01-12] MEDS ORDERED: solu-MEDROL 125 MG ONE (17:13)
[2020-01-12 18:16] VITALS: BP 139/77; PULSE 80; O2SAT 95
== END 2020-01-12 18:20 | disposition home or self-care (01) ==
LOC: ED 16:37
DX: M62.830 Muscle spasm of back (principal); I10 Essential (primary) hypertension; E11.9 Type 2 diabetes mellitus without complications; J44.9 Chronic obstructive pulmonary disease, unspecified; K21.9 Gastro-esophageal reflux disease without esophagitis; F41.9 Anxiety disorder, unspecified; Z79.899 Other long term (current) drug therapy; Z79.891 Long term (current) use of opiate analgesic
CPT/HCPCS: 96372; 99284; J2060; J2930

== ENCOUNTER 2020-05-02 14:07 | Emergency (ER) | payer MEDICARE, OTHER ==
--- NOTE | 2020-05-02 14:16 | ERPHSYRPT ---
- History of Present Illness Time Seen by Provider: 05/02/20 14:16 Source: patient, family Exam Limitations: no limitations Physician History: This is a 54-year-old who is diabetic, has coronary artery disease, has cardiac stents in place, has hypertension, hypothyroidism sleep apnea, COPD and anxiety issues and injects himself with testosterone on a prescription basis. Within the last week or so he injected himself into his left anterior thigh. Since that time he has noticed some redness and tenderness present. There is a firmness now that is warm and is tender to touch. He also complains of some posterior calf and popliteal fossa pain with ambulation. Patient was sent here for evaluation for possible infection and/or deep venous thrombosis. Method of Injury: other (Injection of medication) Occurred: other (Within the last week to 10 days) Quality: aching Severity of Pain-Max: mild Severity of Pain-Current: mild Lower Extremities Pain: thigh: left (Left anterior) Modifying Factors: Improves With: movement, other (Palpation) Allergies/Adverse Reactions: Penicillins Allergy (Severe, Verified 05/02/20 14:29) tongue swelling Home Medications: Albuterol Sulfate [Ventolin Hfa] 1 gm IH DAILY 07/17/16 [History] Albuterol/Ipratropium 3ml Neb* [DUONEB 0.5-3 MG/3 ml Neb] 3 ml NEB QID 07/17/16 [History] Metformin HCl [Fortamet] 1,000 mg PO BID 07/17/16 [History] Clopidogrel Bisulfate 75 mg [PLAVIX 75 MG Tablet] 75 mg PO QAM 07/20/16 [History] Amlodipine Besylate 5 mg [Norvasc 5 mg] 5 mg PO DAILY 10/12/16 [History] Nitroglycerin 0.4 mg Tablet [Nitrostat 0.4 MG Tablet] 0.4 mg SL Q5MIN PRN MR X 3 PRN 10/12/16 [History] Albuterol Sulfate [Proventil Hfa] 6.7 gm IH Q4HPRN PRN 09/03/18 [History] Amitriptyline HCl 75 mg PO HS 09/03/18 [History] Aspirin EC 325 mg [Ecotrin 325 MG] 81 mg PO DAILY 09/03/18 [History] Atorvastatin Calcium [Lipitor] 10 mg PO DAILY 09/03/18 [History] Carvedilol 12.5 mg [Coreg 12.5 mg] 12.5 mg PO BID 09/03/18 [History] Fluticasone/Umeclidin/Vilanter [Trelegy Ellipta 100-62.5-25] 1 each IH DAILY 09/03/18 [History] Ondansetron HCl [Zofran] 4 mg PO Q6HPRN PRN 09/03/18 [History] Oxycodone HCl [Oxycodone HCl ER] 15 mg PO DAILY 09/03/18 [History] Trazodone HCl 50 mg [Desyrel 50 mg] 150 mg PO HS 09/03/18 [History] Fluoxetine HCl 20 mg [Prozac 20 MG] 40 mg PO DAILY 01/12/20 [History] Levothyroxine Sodium 25 Mcg [Synthroid 25 Mcg] 25 mcg PO DAILY 01/12/20 [History] Hx Tetanus, Diphtheria Vaccination/Date Given: Yes Hx Influenza Vaccination/Date Given: Yes Hx Pneumococcal Vaccination/Date Given: Yes Travel Risk - International Travel Have you traveled outside of the country in past 3 weeks: No - Coronavirus Screening Are you exhibiting any of the following symptoms?: No Close contact with a COVID-19 positive Pt in past 14-21 Days: No - Review of Systems Constitutional: No Symptoms Eyes: No Symptoms Ears, Nose, & Throat: No Symptoms Respiratory: No Symptoms Cardiac: No Symptoms Abdominal/Gastrointestinal: No Symptoms Genitourinary Symptoms: No Symptoms Musculoskeletal: No Symptoms Skin: Cellulitis (Mild left anterior thigh), Induration (Left anterior thigh ) Neurological: No Symptoms Psychological: No Symptoms Endocrine: No Symptoms Hematologic/Lymphatic: No Symptoms Immunological/Allergic: No Symptoms All Other Systems: Reviewed and Negative - Past Medical History Pertinent Past Medical History: Yes Neurological History: No Pertinent History ENT History: No Pertinent History Cardiac History: Coronary Artery Disease, Myocardial Infarction ([place]), High Cholesterol, Hypertension Respiratory History: Sleep Apnea, COPD Endocrine Medical History: Diabetes Type II Musculoskeletal History: No Pertinent History, Arthritis GI Medical History: GERD History: No Pertinent History Psycho-Social History: No Pertinent History, Anxiety Male Reproductive Disorders: No Pertinent History Other Medical History: pt wears 2 L N/C at night with c-pap - Past Surgical History Past Surgical History: Yes Neuro Surgical History: No Pertinent History Cardiac: Cardiac Stent, Cardiac Catheterization Respiratory: No Pertinent History Gastrointestinal: No Pertinent History, Other Genitourinary: No Pertinent History Musculoskeletal: No Pertinent History Male Surgical History: No Pertinent History Other Surgical History: cardiac stent x three in 2012,cardiac stent in 2015, last heart cath . in January 2018, Egd, colonoscopy with polypectomy - Social History Smoking Status: Never smoker Exposure to second hand smoke: No Drug Use: none Patient Lives Alone: No - Nursing Vital Signs Nursing Vital Signs: Initial Vital Signs Temperature 98.0 F 05/02/20 14:14 Pulse Rate 76 05/02/20 14:14 Blood Pressure 125/77 05/02/20 14:14 O2 Sat by Pulse Oximetry 96 05/02/20 14:14 Pain Scale Pain Intensity 5 - Physical Exam General Appearance: no apparent distress, alert, anxiety Eyes, Ears, Nose, Throat Exam: normal ENT inspection, moist mucous membranes Neck Exam: normal inspection, non-tender, supple, full range of motion Cardiovascular/Respiratory Exam: chest non-tender, normal breath sounds, regular rate/rhythm, heart sounds normal, no respiratory distress Gastrointestinal/Abdominal Exam: non-tender Back Exam: normal inspection, normal range of motion, No CVA tenderness, No vertebral tenderness Hips Exam: bilateral: non-tender, normal inspection, normal range of motion, no evidence of injury Legs Exam: right leg: no evidence of injury, left leg: soft tissue tenderness (Left anterior thigh), swelling (Left anterior thigh), bilateral leg: normal range of motion Knees Exam: bilateral knee: non-tender, normal inspection, normal range of motion, no evidence of injury Ankle Exam: bilateral ankle: non-tender, normal inspection, normal range of motion, no evidence of injury Foot Exam: bilateral foot: non-tender, normal inspection, normal range of motion, no evidence of injury Neuro/Tendon Exam: normal sensation, normal motor functions, normal tendon functions Mental Status Exam: alert, oriented x 3, cooperative Skin Exam: normal color, warm, dry SpO2 Interpretation: normal O2 Delivery: Room Air Procedures - Incision and Drainage Timeout: Performed Site: Anterior thigh I & D Procedure: betadine prep Progress: Needle aspiration of left anterior thigh fluid collection. No odor. Slightly cloudy and blood-tinged. Ordered Tests: Active Orders 24 hr Category Date Time Status VENOUS UNILAT/LIMITED EXTREMIT [US] Stat Exams 05/02/20 14:41 Taken CULTURE,WOUND Stat Lab 05/02/20 15:09 Ordered - Progress Progress: improved, re-examined Progress Note: 05/02/20 15:18 Ultrasound of the left lower extremity reveals no evidence of deep venous thrombosis. Counseled pt/family regarding: lab results, diagnosis, need for follow-up, rad results - Departure Departure Disposition: Home Clinical Impression: Abscess Condition: Stable Critical Care Time: No Referrals: LISET VIEIRA [Primary Care Provider] - Additional Instructions: Keep injection site clean with soap and water daily. Do not use any ointments lotions or creams. May apply heating pad to left anterior thigh but not directly on the skin 3 times a day on medium setting. Take antibiotics as prescribed. Follow-up with your primary care physician for further management. Prescriptions: Smz/Tmp Ds Tablet [Bactrim Ds Tablet] 1 udtab PO BID #14 tablet
[2020-05-02 14:29] VITALS: PULSE 76
[2020-05-02] MEDS ORDERED: Rocephin 1000 MG INJ ONE (15:15)
[2020-05-02] MEDS ORDERED: XYLOCAINE 1% HCL 20 ML MDV ONE (15:15)
--- NOTE | 2020-05-02 15:15 | XRAY ---
Indication: Left leg pain. Two-dimensional sonogram and color Doppler imaging of the major venous vessels of the left leg was performed. Comparison: None No thrombus seen in the examined deep venous vessels of the left leg including greater saphenous vein. Veins demonstrate normal compressibility. Venous waveforms are normal with and without augmentation. Impression: Left leg negative for DVT.
[2020-05-02] MEDS: Rocephin 1000 MG INJ IM ONE (15:27)
[2020-05-02 15:31] VITALS: BP 126/71; O2SAT 95
== END 2020-05-02 15:54 | disposition home or self-care (01) ==
LOC: ED 14:07
DX: L02.416 Cutaneous abscess of left lower limb (principal); I10 Essential (primary) hypertension; E03.9 Hypothyroidism, unspecified; G47.30 Sleep apnea, unspecified; F51.9 Sleep disorder not due to a substance or known physiological condition, unspecified; J44.9 Chronic obstructive pulmonary disease, unspecified; Z79.899 Other long term (current) drug therapy
CPT/HCPCS: 87070; 93971; 96372; 99284; J0696